=== PATIENT | female | born 1970 | race Hispanic/Latino ===

== ENCOUNTER 2016-08-03 21:51 | Emergency (ER) | payer MEDICARE, MEDICAID ==
[2016-08-03 21:51] VITALS: BMI 47.0
[2016-08-03 22:01] VITALS: BP 108/44; PULSE 76; RESP 18; TEMP 98; O2SAT 98
[2016-08-03] MEDS ORDERED: Acetaminophen-Codeine 300/30 mg Tab PO STA (22:17)
[2016-08-03] MEDS ORDERED: Acetaminophen-Codeine 300/30 mg Tab ONE (22:31)
--- NOTE | 2016-08-03 22:59 | ED PDOC ---
Lower Extremity Pain/Injury Time Seen by Provider: 08/03/16 22:08 Chief Complaint (Nursing): Lower Extremity Problem/Injury Chief Complaint (Provider): Right knee pain, years, worse today Onset/Duration Of Symptoms: Days Current Symptoms Are (Timing): Still Present Severity: Moderate Pain Scale Rating Of: 6 Additional Complaint(s): Pt states she has been taking motrin but it is not helping. No trauma. Past Medical History Reviewed: Historical Data, Nursing Documentation, Vital Signs Vital Signs: Last Vital Signs Temp 98 F 08/03/16 21:56 Pulse 76 08/03/16 21:56 Resp 18 08/03/16 21:56 BP 108/44 L 08/03/16 21:56 Pulse Ox 98 08/03/16 21:56 - Medical History PMH: Arthritis, Asthma, Bronchitis, Depression, Migraine Denies: Diabetes, Hepatitis, HIV, HTN, Seizures, Sexually Transmitted Disease - Surgical History Surgical History: No Surg Hx - Family History Family History: States: Unknown Family Hx, Hypertension - Living Arrangements Living Arrangements: With Family - Social History Current smoker - smoking cessation education provided: No Alcohol: None Drugs: Denies - Immunization History Hx Tetanus Toxoid Vaccination: No Hx Influenza Vaccination: No Hx Pneumococcal Vaccination: No - Home Medications Home Medications: Ambulatory Orders Medication Instructions Recorded Multimineral/Multivitamin 1 tab PO DAILY #30 tab 10/25/15 [Therapeutic-M Tab] Sertraline [Zoloft] 25 mg PO DAILY #30 tab 10/25/15 Nitrofurantoin Macrocrystals 100 mg PO BID #14 cap 10/27/15 [Macrobid] traMADol [Ultram] 50 mg PO TID PRN #12 tab 01/06/16 Ibuprofen [Motrin Tab] 800 mg PO Q8 #20 tab 01/26/16 Acetaminophen with Codeine 1 tab PO Q6H PRN #15 tab 08/03/16 [Tylenol with Codeine No. 3 300 mg-30 mg] - Allergies Allergies/Adverse Reactions: Allergies Allergy/AdvReac Type Severity Reaction Status Date / Time avocado Allergy URTICARIA Verified 01/06/16 08:09 fish derived Allergy URTICARIA Verified 01/06/16 08:09 Penicillins Allergy URTICARIA Verified 01/06/16 08:09 Review of Systems ROS Statement: Except As Marked, All Systems Reviewed And Found Negative Musculoskeletal: Positive for: Leg Pain Physical Exam - Reviewed Nursing Documentation Reviewed: Yes Vital Signs Reviewed: Yes - Physical Exam Appears: Positive for: Well, Non-toxic, No Acute Distress Head Exam: Positive for: ATRAUMATIC, NORMAL INSPECTION, NORMOCEPHALIC Skin: Positive for: Normal Color, Warm, DRY Eye Exam: Positive for: Normal appearance ENT: Positive for: Normal ENT Inspection Neck: Positive for: Normal, Painless ROM Respiratory: Negative for: Accessory Muscle Use, Respiratory Distress Back: Positive for: Normal Inspection Extremity: Positive for: Normal ROM, Tenderness. Negative for: Deformity, Swelling Neurologic/Psych: Positive for: Alert, Oriented - ECG O2 Sat by Pulse Oximetry: 98 Medical Decision Making Medical Decision Making: Arthritis on x-ray. No acute fracture or dislocation. Disposition - Clinical Impression Clinical Impression: Arthritis - Patient ED Disposition Is Patient to be Admitted: No Counseled Patient/Family Regarding: Diagnosis, Need For Followup, Rx Given - Disposition Referrals: [facility] [Outside] Disposition: Routine/Home Disposition Time: 23:01 Condition: GOOD Prescriptions: Acetaminophen with Codeine [Tylenol with Codeine No. 3 300 mg-30 mg] 1 tab PO Q6H PRN #15 tab PRN Reason: Pain, Severe (8-10) Instructions: Arthritis (ED)
--- NOTE | 2016-08-04 11:40 | RAD ---
PROCEDURE: Right Knee Radiographs. HISTORY: COMPARISON: None available. FINDINGS: Examination limited by habitus. BONES: No acute displaced fracture. Degenerative changes including osteophyte formation and tenting of the intercondylar notch. JOINTS: No dislocation. Lateral and patellofemoral joint space narrowing. JOINT EFFUSION: No significant joint effusion. OTHER FINDINGS: None. IMPRESSION: Degenerative changes with lateral and patellofemoral joint space narrowing, osteophyte formation, and tenting of the intercondylar notch.
== END 2016-08-03 23:19 | disposition home or self-care (01) ==
LOC: H.ER 21:51
DX: M17.11 Unilateral primary osteoarthritis, right knee (principal)

== ENCOUNTER 2016-11-27 23:02 | Observation (INO) | payer MEDICARE, MEDICAID ==
[2016-11-27 23:03] VITALS: BMI 46.5
[2016-11-27] MEDS ORDERED: Alum-Mag Hydrox-Simethicone Susp (30 mL) PO STA (23:40)
--- NOTE | 2016-11-27 23:43 | ED PDOC ---
HPI: Psych/Substance Abuse Time Seen by Provider: 11/27/16 23:30 Chief Complaint (Nursing): Alcohol Ingestion Chief Complaint (Provider): etoh, depressed History Per: Patient History/Exam Limitations: no limitations Onset/Duration Of Symptoms: Days (1) Current Symptoms Are (Timing): Still Present Modifying Factor(s): Alcohol Additional History Per: Patient Additional Complaint(s): 45 y/o female history of alcohol abuse presents intoxicated, requesting to see a psychiatrist. Patient states she relapsed after being sober for 1 years, and feels depressed. Patient states she had thoughts of hurting herself tonight, with plan to jump in the river. Patient also notes "burning" sensation in upper abdomen, which she states she gets after drinking. Denies fever, chest pain, shortness of breath, palpitations, vomiting, changes in bowel movements, homicidal ideations, hallucinations. Patient takes zoloft daily. Past Medical History Reviewed: Historical Data, Nursing Documentation, Vital Signs Vital Signs: Last Vital Signs Temp 98.1 F 11/27/16 23:24 Pulse 84 11/27/16 23:24 Resp 18 11/27/16 23:24 BP 124/78 11/27/16 23:24 Pulse Ox 99 11/27/16 23:24 - Medical History PMH: Arthritis, Asthma, Bronchitis, Depression, Migraine Denies: Diabetes, Hepatitis, HIV, HTN, Seizures, Sexually Transmitted Disease - Family History Family History: States: Unknown Family Hx, Hypertension - Living Arrangements Living Arrangements: Alone - Social History Current smoker - smoking cessation education provided: No Alcohol: > 2 Drinks/Day Drugs: Denies - Immunization History Hx Tetanus Toxoid Vaccination: No Hx Influenza Vaccination: No Hx Pneumococcal Vaccination: No - Home Medications Home Medications: Ambulatory Orders Medication Instructions Recorded Multimineral/Multivitamin 1 tab PO DAILY #30 tab 10/25/15 [Therapeutic-M Tab] Sertraline [Zoloft] 25 mg PO DAILY #30 tab 10/25/15 Nitrofurantoin Macrocrystals 100 mg PO BID #14 cap 10/27/15 [Macrobid] traMADol [Ultram] 50 mg PO TID PRN #12 tab 01/06/16 Ibuprofen [Motrin Tab] 800 mg PO Q8 #20 tab 01/26/16 Acetaminophen with Codeine 1 tab PO Q6H PRN #15 tab 08/03/16 [Tylenol with Codeine No. 3 300 mg-30 mg] - Allergies Allergies/Adverse Reactions: Allergies Allergy/AdvReac Type Severity Reaction Status Date / Time avocado Allergy URTICARIA Verified 01/06/16 08:09 fish derived Allergy URTICARIA Verified 01/06/16 08:09 Penicillins Allergy URTICARIA Verified 01/06/16 08:09 Review of Systems ROS Statement: Except As Marked, All Systems Reviewed And Found Negative Gastrointestinal: Positive for: Abdominal Pain Psych: Positive for: Depression, Suicidal ideation Physical Exam - Reviewed Nursing Documentation Reviewed: Yes Vital Signs Reviewed: Yes - Physical Exam Appears: Positive for: Well, Non-toxic, No Acute Distress Head Exam: Positive for: ATRAUMATIC, NORMAL INSPECTION, NORMOCEPHALIC Skin: Positive for: Normal Color Eye Exam: Positive for: Normal appearance ENT: Positive for: Normal ENT Inspection Cardiovascular/Chest: Positive for: Regular Rate, Rhythm Respiratory: Positive for: Normal Breath Sounds Gastrointestinal/Abdominal: Positive for: Bowel Sounds, Soft, Tenderness ( epigastric) Back: Positive for: Normal Inspection Extremity: Positive for: Normal ROM Neurologic/Psych: Positive for: Alert, Other (slurred speech, +AOB) - Laboratory Results Result Diagrams: 11/27/16 23:58 11/27/16 23:58 - ECG O2 Sat by Pulse Oximetry: 99 ED OBSERVATION Discharge: Yes Date of observation admission: 11/28/16 Time of observation admission: 00:00 - Observation admission statement Patient is being placed in observation because:: acute alcohol intoxication, depressed, suicidal ideations - Goals of Observation Goals of observation are:: observe for clinical sobriety, obtain crisis eval - Progress Note Progress Note: 11/28/16 00:00 Patient resting comfortably 1:30 Patient sleeping; no distress 3:00 patient awake, resting comfortably. Ambulating to bathroom with steady gait. 3:30 Patient evaluated by mill worker; does not meet criteria for admission at this time. Follow up outpatient. Return to ED for worsening/concerning symptoms. Disposition - Clinical Impression Clinical Impression: Alcohol use disorder, mild, abuse - Patient ED Disposition Is Patient to be Admitted: No Counseled Patient/Family Regarding: Studies Performed, Diagnosis, Need For Followup - Disposition Disposition: Routine/Home Disposition Time: 03:21 Condition: IMPROVED
[2016-11-27] MEDS ORDERED: Alum-Mag Hydrox-Simethicone Susp (30 mL) ONE (23:49)
[2016-11-28 00:01] LABS: BASO # 0.1 K/uL (0.0-0.2); BASO % 0.9 % (0.0-2.0); EOS # 0.1 K/uL (0.0-0.7); EOS % 0.9 % (0.0-4.0); HEMATOCRIT 34.6 % (34.0-47.0); LYMPH # 2.4 K/uL (1.0-4.3); LYMPH % 24.8 % (20.0-40.0); MEAN CELL VOLUME 83.4 fl (81.0-99.0); MEAN CORPUSCULAR HEMOGLOBIN 27.8 pg (27.0-31.0); MEAN CORPUSCULAR HGB CONC 33.4 g/dL (33.0-37.0); MEAN PLATELET VOLUME 7.5 fl (7.2-11.7); MONO # 0.4 K/uL (0.0-0.8); MONO % 3.9 % (0.0-10.0); NEUT # 6.8 K/uL (1.8-7.0); NEUT % 69.5 % (50.0-75.0); NRBC % 0.1 % (0.0-0.0); WHITE BLOOD COUNT 9.7 K/uL (4.8-10.8)
[2016-11-28 00:10] LABS: ALB/GLOB RATIO 1.5 (1.0-2.1); ALCOHOL SERUM 214 mg/dl (0-10); ALKALINE PHOSPHATASE 28 U/L (38-126); ALT/SGPT 28 U/L (9-52); AST/SGOT 32 U/L (14-36); BILIRUBIN,TOTAL 0.4 mg/dl (0.2-1.3); BLOOD UREA NITROGEN 12 mg/dl (7-17); CALCIUM 9.3 mg/dL (8.4-10.2); CARBON DIOXIDE 27 mmol/L (22-30); CHLORIDE 102 mmol/L (98-107); GFR AFRICAN-AMERICAN > 60; GLUCOSE,RANDOM 86 mg/dL (65-105); LIPASE 75 U/L (23-300); POTASSIUM 3.7 MMOL/L (3.6-5.0); SODIUM 146 mmol/l (132-148); TOTAL PROTEIN 7.5 G/DL (6.3-8.2)
[2016-11-28 03:33] VITALS: BP 109/52; PULSE 88; RESP 16; TEMP 97.5; O2SAT 95
== END 2016-11-28 03:22 | disposition home or self-care (01) ==
LOC: H.ER 23:02 → H.EROBSV 11-28 02:12
PROVIDERS: ADMIT Emergency Medicine; ATTEND Emergency Medicine
DX: F10.10 Alcohol abuse, uncomplicated (principal); J45.909 Unspecified asthma, uncomplicated; F32.9 Major depressive disorder, single episode, unspecified; G43.909 Migraine, unspecified, not intractable, without status migrainosus; J40 Bronchitis, not specified as acute or chronic; M19.90 Unspecified osteoarthritis, unspecified site; Z79.899 Other long term (current) drug therapy
CPT/HCPCS: 80053; 82948; 83690; 85025; 99285; G0378; G0480

== ENCOUNTER 2016-12-24 08:37 | Emergency (ER) | payer MEDICAID, MEDICARE ==
[2016-12-24 08:44] VITALS: BP 107/60; PULSE 86; RESP 16; TEMP 98.9; BMI 46.3
[2016-12-24 08:49] VITALS: O2SAT 98
--- NOTE | 2016-12-24 08:58 | ED PDOC ---
HPI: CCC, URI, Sore Throat Time Seen by Provider: 12/24/16 08:49 Chief Complaint (Nursing): Dizziness/Lightheaded History Per: Patient (Headache cough and congestion x 2 days. No fever. No vomiting) Onset/Duration Of Symptoms: Days (2) Current Symptoms Are (Timing): Still Present Location Of Pain: Diffuse Myalgias, Headache Associated Symptoms: Sore Throat, Cough, Myalgias Severity: Mild Pain Scale Rating Of: 3 Past Medical History Vital Signs: Last Vital Signs Temp 98.9 F 12/24/16 08:41 Pulse 86 12/24/16 08:41 Resp 16 12/24/16 08:41 BP 107/60 12/24/16 08:41 Pulse Ox 98 12/24/16 08:59 - Medical History PMH: Arthritis, Asthma, Bronchitis, Depression, Migraine Denies: Diabetes, Hepatitis, HIV, HTN, Seizures, Sexually Transmitted Disease - Family History Family History: States: Unknown Family Hx, Hypertension - Immunization History Hx Tetanus Toxoid Vaccination: No Hx Influenza Vaccination: No Hx Pneumococcal Vaccination: No - Home Medications Home Medications: Ambulatory Orders Medication Instructions Recorded Multimineral/Multivitamin 1 tab PO DAILY #30 tab 10/25/15 [Therapeutic-M Tab] Sertraline [Zoloft] 25 mg PO DAILY #30 tab 10/25/15 Nitrofurantoin Macrocrystals 100 mg PO BID #14 cap 10/27/15 [Macrobid] traMADol [Ultram] 50 mg PO TID PRN #12 tab 01/06/16 Ibuprofen [Motrin Tab] 800 mg PO Q8 #20 tab 01/26/16 Acetaminophen with Codeine 1 tab PO Q6H PRN #15 tab 08/03/16 [Tylenol with Codeine No. 3 300 mg-30 mg] Azithromycin [Zithromax] 250 mg PO DAILY #6 tab 12/24/16 Naproxen [Naprosyn] 500 mg PO Q12H #20 tab 12/24/16 - Allergies Allergies/Adverse Reactions: Allergies Allergy/AdvReac Type Severity Reaction Status Date / Time avocado Allergy URTICARIA Verified 12/24/16 08:46 fish derived Allergy URTICARIA Verified 12/24/16 08:46 Penicillins Allergy URTICARIA Verified 12/24/16 08:46 Review of Systems Constitutional: Positive for: Malaise ENT: Positive for: Throat Pain Respiratory: Positive for: Cough Gastrointestinal: Negative for: Nausea, Vomiting, Diarrhea Physical Exam - Physical Exam Appears: Positive for: Non-toxic Skin: Positive for: Normal Color, Warm, DRY ENT: Positive for: Pharyngeal Erythema. Negative for: Sinus Pain/Drainage, Tonsillar Exudate Neck: Positive for: Normal, Painless ROM Cardiovascular/Chest: Positive for: Regular Rate, Rhythm Respiratory: Positive for: CNT, Normal Breath Sounds Gastrointestinal/Abdominal: Positive for: Normal Exam, Bowel Sounds, Soft Extremity: Positive for: Normal ROM Neurologic/Psych: Positive for: Alert, Oriented - ECG O2 Sat by Pulse Oximetry: 98 Disposition - Clinical Impression Clinical Impression: Bronchitis - Patient ED Disposition Is Patient to be Admitted: No Counseled Patient/Family Regarding: Studies Performed, Diagnosis, Need For Followup, Rx Given - Disposition Referrals: [facility] [Outside] Disposition: Routine/Home Disposition Time: 11:18 Condition: FAIR Prescriptions: Azithromycin [Zithromax] 250 mg PO DAILY #6 tab Naproxen [Naprosyn] 500 mg PO Q12H #20 tab Instructions: Acute Bronchitis (ED) Forms: [employer] (Malian)
--- NOTE | 2016-12-24 10:07 | RAD ---
HISTORY: COMPARISON: 10/21/2015. TECHNIQUE: Chest PA and lateral FINDINGS: LINES AND TUBES: None. LUNG AND PLEURA: The lungs are well inflated and clear. HEART AND MEDIASTINUM: The heart is not enlarged. The hilar and mediastinal contours are within normal limits. SKELETAL STRUCTURES: The bony structures are within normal limits for the patient's age. VISUALIZED UPPER ABDOMEN: Normal. OTHER FINDINGS: None. IMPRESSION: No active pulmonary disease.
== END 2016-12-24 11:42 | disposition home or self-care (01) ==
LOC: H.ER 08:37
DX: J40 Bronchitis, not specified as acute or chronic (principal); F32.9 Major depressive disorder, single episode, unspecified; J45.909 Unspecified asthma, uncomplicated; Z88.0 Allergy status to penicillin

== ENCOUNTER 2017-01-29 15:53 | Emergency (ER) | payer MEDICARE, MEDICAID ==
[2017-01-29 15:53] VITALS: BMI 46.3
[2017-01-29 16:12] VITALS: BP 119/58; PULSE 76; RESP 18; TEMP 98; O2SAT 98
[2017-01-29] MEDS ORDERED: Naproxen 500 MG TAB PO ONE ×2 (16:18→16:25)
--- NOTE | 2017-01-29 18:16 | ED PDOC ---
Lower Extremity Pain/Injury Time Seen by Provider: 01/29/17 16:14 Chief Complaint (Nursing): Lower Extremity Problem/Injury Chief Complaint (Provider): Lower Extremity Problem/Injury History Per: Patient History/Exam Limitations: no limitations Onset/Duration Of Symptoms: Days (x 1) Current Symptoms Are (Timing): Still Present Additional Complaint(s): Maya is a 46 year old female who presents to the Emergency Department for bilateral knee pain and left wrist pain. Patient states last night she tripped and fell on both her knees and left wrist. Denies head injury, loss of consciousness, numbness/tingling, chest pain and abdominal pain. PMD: Ali Past Medical History Reviewed: Historical Data, Nursing Documentation, Vital Signs Vital Signs: Last Vital Signs Temp 98 F 01/29/17 16:09 Pulse 76 01/29/17 16:09 Resp 18 01/29/17 16:09 BP 119/58 L 01/29/17 16:09 Pulse Ox 98 01/29/17 16:09 - Medical History PMH: Arthritis, Asthma, Bronchitis, Depression, Migraine Denies: Diabetes, Hepatitis, HIV, HTN, Seizures, Sexually Transmitted Disease - Surgical History Surgical History: No Surg Hx - Family History Family History: States: Hypertension - Immunization History Hx Tetanus Toxoid Vaccination: No Hx Influenza Vaccination: No Hx Pneumococcal Vaccination: No - Home Medications Home Medications: Ambulatory Orders Medication Instructions Recorded Multimineral/Multivitamin 1 tab PO DAILY #30 tab 10/25/15 [Therapeutic-M Tab] Sertraline [Zoloft] 25 mg PO DAILY #30 tab 10/25/15 Nitrofurantoin Macrocrystals 100 mg PO BID #14 cap 10/27/15 [Macrobid] traMADol [Ultram] 50 mg PO TID PRN #12 tab 01/06/16 Ibuprofen [Motrin Tab] 800 mg PO Q8 #20 tab 01/26/16 Acetaminophen with Codeine 1 tab PO Q6H PRN #15 tab 08/03/16 [Tylenol with Codeine No. 3 300 mg-30 mg] Azithromycin [Zithromax] 250 mg PO DAILY #6 tab 12/24/16 Naproxen [Naprosyn] 500 mg PO Q12H #20 tab 12/24/16 Naproxen [Naprosyn] 500 mg PO BID PRN #30 tab 01/29/17 - Allergies Allergies/Adverse Reactions: Allergies Allergy/AdvReac Type Severity Reaction Status Date / Time avocado Allergy URTICARIA Verified 12/24/16 08:46 fish derived Allergy URTICARIA Verified 12/24/16 08:46 Penicillins Allergy URTICARIA Verified 12/24/16 08:46 Review of Systems ROS Statement: Except As Marked, All Systems Reviewed And Found Negative Cardiovascular: Negative for: Chest Pain Gastrointestinal: Negative for: Abdominal Pain Musculoskeletal: Positive for: Other (Bilateral Knee Pain, Left Wrist Pain) Neurological: Negative for: Numbness (and tingling), Other (Loss of consciousness) Physical Exam - Reviewed Nursing Documentation Reviewed: Yes Vital Signs Reviewed: Yes - Physical Exam Appears: Positive for: Non-toxic Head Exam: Positive for: ATRAUMATIC Eye Exam: Positive for: Normal appearance ENT: Positive for: Normal ENT Inspection Neck: Positive for: Normal Cardiovascular/Chest: Positive for: Regular Rate, Rhythm Respiratory: Positive for: Normal Breath Sounds. Negative for: Respiratory Distress Pulses-Radial (L): 2+ Neurologic/Psych: Positive for: Alert, Oriented - ECG O2 Sat by Pulse Oximetry: 98 (RA) Pulse Ox Interpretation: Normal Medical Decision Making Medical Decision Making: Time: 16:18 Plan: - Left Knee X-Ray - Right Knee X-Ray - Adacdel 0.5 ml IM - Naproxen 500 mg PO - Left Wrist X-Ray Time: 16:58 Left Knee-X-Ray FINDINGS: BONES: No acute fractures. No acute fracture. Proliferative hypertrophic changes emanating from the femoral condyle and tibial plateau regions. JOINTS: Degenerative changes primarily affecting medial compartment and to a lesser extent patellofemoral joint with relative sparing of the lateral compartment. JOINT EFFUSION: Probable small suprapatellar joint effusion. OTHER FINDINGS: None. IMPRESSION: No acute fracture. Additional benign and/or incidental findings described above. Time: 16:58 Right Knee X-Ray FINDINGS: BONES: No acute fracture. Proliferative hypertrophic changes emanating from the femoral condyle and tibial plateau regions. JOINTS: Degenerative changes primarily affecting medial compartment and to a lesser extent patellofemoral joint. Large, irregular fabella or evidence of osteochondromatosis. No interval change. JOINT EFFUSION: None. OTHER FINDINGS: None. IMPRESSION: No acute findings related to/accounting for the clinical presentation. Additional benign and/or incidental findings described above. No significant interval change compared to the prior examination(s). Time: 16:58 Wrist-X-Ray FINDINGS: BONES: Normal. No fracture. JOINTS: Normal. No dislocation. SOFT TISSUES: Normal. OTHER FINDINGS: None. IMPRESSION: Normal left wrist radiographs. Scribe Attestation: Documented by Kaiser Ortiz, acting as a scribe for Chucho Madsen PA-C Provider Scribe Attestation: All medical record entries made by the Scribe were at my direction and personally dictated by me. I have reviewed the chart and agree that the record accurately reflects my personal performance of the history, physical exam, medical decision making, and the department course for this patient. I have also personally directed, reviewed, and agree with the discharge instructions and disposition. Disposition - Clinical Impression Clinical Impression: Knee contusion, Wrist sprain - Patient ED Disposition Is Patient to be Admitted: No - Disposition Referrals: [facility] [Outside] Disposition: Routine/Home Disposition Time: 17:30 Condition: STABLE Prescriptions: Naproxen [Naprosyn] 500 mg PO BID PRN #30 tab PRN Reason: Pain Instructions: Knee Pain (ED), Wrist Sprain (ED) Forms: [employer] (Hungarian) Print Language: ERITREAN
--- NOTE | 2017-01-29 18:23 | RAD ---
PROCEDURE: Left Knee Radiographs. HISTORY: Pain. COMPARISON: Bilateral knee pain. History of prior trauma. FINDINGS: BONES: No acute fractures. No acute fracture. Proliferative hypertrophic changes emanating from the femoral condyle and tibial plateau regions. JOINTS: Degenerative changes primarily affecting medial compartment and to a lesser extent patellofemoral joint with relative sparing of the lateral compartment. JOINT EFFUSION: Probable small suprapatellar joint effusion. OTHER FINDINGS: None. IMPRESSION: No acute fracture. Additional benign and/or incidental findings described above.
--- NOTE | 2017-01-29 18:24 | RAD ---
PROCEDURE: Left Wrist Radiographs. HISTORY: trauma COMPARISON: None. FINDINGS: BONES: Normal. No fracture. JOINTS: Normal. No dislocation. SOFT TISSUES: Normal. OTHER FINDINGS: None. IMPRESSION: Normal left wrist radiographs.
--- NOTE | 2017-01-29 18:26 | RAD ---
PROCEDURE: Right Knee Radiographs. HISTORY: trauma COMPARISON: 08/03/2016 x-rays right knee FINDINGS: BONES: No acute fracture. Proliferative hypertrophic changes emanating from the femoral condyle and tibial plateau regions. JOINTS: Degenerative changes primarily affecting medial compartment and to a lesser extent patellofemoral joint. Large, irregular fabella or evidence of osteochondromatosis. No interval change. JOINT EFFUSION: None. OTHER FINDINGS: None. IMPRESSION: No acute findings related to/accounting for the clinical presentation. Additional benign and/or incidental findings described above. No significant interval change compared to the prior examination(s).
== END 2017-01-29 17:41 | disposition home or self-care (01) ==
LOC: H.ER 15:53
DX: S80.00XA Contusion of unspecified knee, initial encounter (principal); S63.502A Unspecified sprain of left wrist, initial encounter; W19.XXXA Unspecified fall, initial encounter; Y92.89 Other specified places as the place of occurrence of the external cause; F32.9 Major depressive disorder, single episode, unspecified; J45.909 Unspecified asthma, uncomplicated; Z88.0 Allergy status to penicillin

== ENCOUNTER 2017-03-20 12:17 | Emergency (ER) | payer MEDICARE, MEDICAID ==
[2017-03-20 12:46] VITALS: BMI 45.5
[2017-03-20 12:48] VITALS: BP 111/58; PULSE 73; RESP 17; TEMP 98.1; O2SAT 96
--- NOTE | 2017-03-20 13:47 | ED PDOC ---
HPI: General Adult Time Seen by Provider: 03/20/17 12:57 Chief Complaint (Nursing): Flu-like Symptoms Chief Complaint (Provider): Flu-like Symptoms History Per: Patient History/Exam Limitations: no limitations Onset/Duration Of Symptoms: Days (x2) Current Symptoms Are (Timing): Still Present Additional Complaint(s): 46 year old female with medical history of asthma and bronchitis, who presents to the emergency department with a complaint of flu-like symptoms including tactile fever, diarrhea, vomiting, generalized bodyaches, bilateral ear pain and sore throat ongoing for 5 days. Denied any chest pain, shortness of breath, abdominal pain, difficulty urinating, bloody urine, incontinence or recent travel. PMD: Merlin Rankin MD Past Medical History Reviewed: Historical Data, Nursing Documentation, Vital Signs Vital Signs: Last Vital Signs Temp 98.1 F 03/20/17 12:46 Pulse 73 03/20/17 12:46 Resp 17 03/20/17 12:46 BP 111/58 L 03/20/17 12:46 Pulse Ox 96 03/20/17 14:14 - Medical History PMH: Arthritis, Asthma, Bronchitis, Depression, Migraine Denies: Diabetes, Hepatitis, HIV, HTN, Seizures, Sexually Transmitted Disease - Surgical History Surgical History: Denies: No Surg Hx Other surgeries: right knee; right thumb - Family History Family History: States: Unknown Family Hx, Hypertension - Social History Current smoker - smoking cessation education provided: No Ex-Smoker (has not smoked in the last 12 months): Yes Alcohol: None Drugs: Denies - Immunization History Hx Tetanus Toxoid Vaccination: No Hx Influenza Vaccination: No Hx Pneumococcal Vaccination: No - Home Medications Home Medications: Ambulatory Orders Medication Instructions Recorded Multimineral/Multivitamin 1 tab PO DAILY #30 tab 10/25/15 [Therapeutic-M Tab] Sertraline [Zoloft] 25 mg PO DAILY #30 tab 10/25/15 Nitrofurantoin Macrocrystals 100 mg PO BID #14 cap 10/27/15 [Macrobid] traMADol [Ultram] 50 mg PO TID PRN #12 tab 01/06/16 Ibuprofen [Motrin Tab] 800 mg PO Q8 #20 tab 01/26/16 Acetaminophen with Codeine 1 tab PO Q6H PRN #15 tab 08/03/16 [Tylenol with Codeine No. 3 300 mg-30 mg] Azithromycin [Zithromax] 250 mg PO DAILY #6 tab 12/24/16 Naproxen [Naprosyn] 500 mg PO Q12H #20 tab 12/24/16 Naproxen [Naprosyn] 500 mg PO BID PRN #30 tab 01/29/17 Ibuprofen [Motrin Tab] 600 mg PO QID PRN #20 tab 03/20/17 Ondansetron ODT [Zofran ODT] 4 mg PO DAILY PRN #20 odt 03/20/17 - Allergies Allergies/Adverse Reactions: Allergies Allergy/AdvReac Type Severity Reaction Status Date / Time avocado Allergy URTICARIA Verified 03/20/17 12:44 fish derived Allergy URTICARIA Verified 03/20/17 12:44 Penicillins Allergy URTICARIA Verified 03/20/17 12:44 Review of Systems ROS Statement: Except As Marked, All Systems Reviewed And Found Negative Constitutional: Positive for: Fever (tactile), Other (generalized bodyaches) ENT: Positive for: Ear Pain (bilateral), Throat Pain Cardiovascular: Negative for: Chest Pain Respiratory: Negative for: Shortness of Breath Gastrointestinal: Positive for: Vomiting, Diarrhea. Negative for: Abdominal Pain Genitourinary Female: Negative for: Dysuria, Incontinence, Hematuria Physical Exam - Reviewed Nursing Documentation Reviewed: Yes Vital Signs Reviewed: Yes - Physical Exam Appears: Positive for: Well, Non-toxic, In Acute Distress (mild). Negative for : No Acute Distress Skin: Positive for: Normal Color, Warm, Dry ENT: Positive for: Normal ENT Inspection, Pharynx Is (within normal limits), TM Is/Are (wnl, no erythe,a). Negative for: Pharyngeal Erythema, Tonsillar Exudate Neck: Positive for: Normal, Supple (no signs of meningismus) Cardiovascular/Chest: Positive for: Regular Rate, Rhythm, Chest Non Tender Respiratory: Positive for: Normal Breath Sounds. Negative for: Decreased Breath Sounds, Crackles, Rales, Rhonchi, Wheezing, Respiratory Distress Gastrointestinal/Abdominal: Positive for: Normal Exam, Soft. Negative for: Tenderness, Organomegaly, Mass, Guarding, Rebound Back: Positive for: Normal Inspection. Negative for: L CVA Tenderness, R CVA Tenderness, Vertebral Tenderness Extremity: Positive for: Normal ROM (upper/lower). Negative for: Tenderness, Pedal Edema (bilateral), Calf Tenderness (bilateral), Swelling Neurologic/Psych: Positive for: Alert (x3), inspecting supervisor II-XII (intact), Oriented. Negative for: Motor/Sensory Deficits - ECG O2 Sat by Pulse Oximetry: 96 (RA) Pulse Ox Interpretation: Normal Medical Decision Making Medical Decision Making: Initial Impression: Flu-like symptoms Initial Plan: * Motrin 600mg PO * Zofran inj 4mg IM On reevaluation, patient reports improvement of nausea and body aches. Patient is tolerating by mouth fluids well in the emergency room without any nausea, vomiting or abdominal pain. Diagnosis of viral illness discussed the patient. Advised bedrest, to drink plenty of fluids, instructed to follow BRAT diet. Otherwise instructed to follow up with primary care physician in 1-2 days without fail. Advised to take medication as prescribed. Return to the emergency room at any time for any new or worsening symptoms. Patient states she fully agrees with and understands discharge instructions. States that she agrees with the plan and disposition. Verbalized and repeated discharge instructions and plan. I have given the patient opportunity to ask any additional questions. Scribe Attestation: Documented by Nilda Barcenas, acting as a scribe for Victorina Oneill PA-C. Provider Scribe Attestation: All medical record entries made by the Scribe were at my direction and personally dictated by me. I have reviewed the chart and agree that the record accurately reflects my personal performance of the history, physical exam, medical decision making, and the department course for this patient. I have also personally directed, reviewed, and agree with the discharge instructions and disposition. Disposition - Clinical Impression Clinical Impression: Viral illness - Patient ED Disposition Is Patient to be Admitted: No Counseled Patient/Family Regarding: Diagnosis, Need For Followup, Rx Given - Disposition Disposition: Routine/Home Disposition Time: 13:46 Condition: STABLE Additional Instructions: Thank you for letting us take care of you today. You were treated for viral illness. The emergency medical care you received today was directed at your acute symptoms. If you were prescribed any medication, please fill it and take as directed. It may take several days for your symptoms to resolve. Return to the Emergency Department if your symptoms worsen, do not improve, or if you have any other problems. Please contact your doctor in 2 days for re-evaluation and follow up. Bring any paperwork you were given at discharge with you along with any medications you are taking to your follow up visit. Our treatment cannot replace ongoing medical care by a primary care provider (PCP) outside of the emergency department. Thank you for allowing the [facility] team to be part of your care today. Prescriptions: Ibuprofen [Motrin Tab] 600 mg PO QID PRN #20 tab PRN Reason: Pain, Moderate (4-7) Ondansetron ODT [Zofran ODT] 4 mg PO DAILY PRN #20 odt PRN Reason: Nausea/Vomiting Instructions: Viral Syndrome (ED) Forms: [employer] (Lithuanian), 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
== END 2017-03-20 14:34 | disposition home or self-care (01) ==
LOC: H.ER 12:17
DX: B34.9 Viral infection, unspecified (principal); F32.9 Major depressive disorder, single episode, unspecified; J45.909 Unspecified asthma, uncomplicated; Z88.0 Allergy status to penicillin
CPT/HCPCS: 96372; 99282; J2405

== ENCOUNTER 2017-07-15 17:03 | Emergency (ER) | payer MEDICARE, MEDICAID ==
[2017-07-15 17:03] VITALS: BMI 45.5
--- NOTE | 2017-07-15 17:50 | ED PDOC ---
HPI: General Adult Time Seen by Provider: 07/15/17 17:25 Chief Complaint (Nursing): Abdominal Pain Chief Complaint (Provider): Abdominal Pain History Per: Patient History/Exam Limitations: no limitations Onset/Duration Of Symptoms: Hrs Current Symptoms Are (Timing): Still Present Additional Complaint(s): 46 year old female with a past medical history of migraines associated with dizziness and asthma who presents to the emergency department with a complaint of an on and off sharp right-sided abdominal pain (non-radiating) that started about 1 hour ago when she woke up. Associated with a throbbing headache and dizziness that started at 1600. Denies vomiting, urinary symptoms, back pain, fever, depression, suicidal or homicidal ideation. Past Medical History Reviewed: Historical Data, Nursing Documentation, Vital Signs Vital Signs: Last Vital Signs Temp 98.2 F 07/15/17 22:13 Pulse 61 07/15/17 22:13 Resp 18 07/15/17 22:13 BP 105/66 07/15/17 22:13 Pulse Ox 97 07/16/17 05:29 - Medical History PMH: Arthritis, Asthma, Bipolar Disorder, Bronchitis, Depression, Migraine, Schizophrenia Denies: Diabetes, Hepatitis, HIV, HTN, Seizures, Sexually Transmitted Disease - Surgical History Other surgeries: Right finger and knee - Family History Family History: States: Unknown Family Hx, Hypertension - Social History Current smoker - smoking cessation education provided: No Alcohol: None Drugs: Denies - Immunization History Hx Tetanus Toxoid Vaccination: No Hx Influenza Vaccination: No Hx Pneumococcal Vaccination: No - Home Medications Home Medications: Ambulatory Orders Medication Instructions Recorded Multimineral/Multivitamin 1 tab PO DAILY #30 tab 10/25/15 [Therapeutic-M Tab] Sertraline [Zoloft] 25 mg PO DAILY #30 tab 10/25/15 Nitrofurantoin Macrocrystals 100 mg PO BID #14 cap 10/27/15 [Macrobid] traMADol [Ultram] 50 mg PO TID PRN #12 tab 01/06/16 Ibuprofen [Motrin Tab] 800 mg PO Q8 #20 tab 01/26/16 Acetaminophen with Codeine 1 tab PO Q6H PRN #15 tab 08/03/16 [Tylenol with Codeine No. 3 300 mg-30 mg] Azithromycin [Zithromax] 250 mg PO DAILY #6 tab 12/24/16 Naproxen [Naprosyn] 500 mg PO Q12H #20 tab 12/24/16 Naproxen [Naprosyn] 500 mg PO BID PRN #30 tab 01/29/17 Ibuprofen [Motrin Tab] 600 mg PO QID PRN #20 tab 03/20/17 Ondansetron ODT [Zofran ODT] 4 mg PO DAILY PRN #20 odt 03/20/17 Ibuprofen [Motrin] 600 mg PO Q6H #14 tab 04/17/17 Nitrofurantoin Macrocrystals 100 mg PO BID #14 cap 07/15/17 [Macrobid] - Allergies Allergies/Adverse Reactions: Allergies Allergy/AdvReac Type Severity Reaction Status Date / Time avocado Allergy URTICARIA Verified 03/20/17 12:44 Penicillins Allergy URTICARIA Verified 03/20/17 12:44 seafood Allergy URTICARIA Uncoded 07/15/17 17:10 Review of Systems ROS Statement: Except As Marked, All Systems Reviewed And Found Negative (As per HPI, otherwise negative) Constitutional: Negative for: Fever Gastrointestinal: Positive for: Abdominal Pain. Negative for: Vomiting, Diarrhea Genitourinary Female: Negative for: Dysuria, Frequency, Incontinence, Hematuria Musculoskeletal: Negative for: Back Pain Psych: Negative for: Depression, Suicidal ideation (homicidal) Physical Exam - Reviewed Nursing Documentation Reviewed: Yes Vital Signs Reviewed: Yes - Physical Exam Appears: Positive for: Well, No Acute Distress Head Exam: Positive for: NORMAL INSPECTION Skin: Positive for: Normal Color, Warm, Dry Eye Exam: Positive for: Normal appearance, EOMI, PERRL ENT: Positive for: Normal ENT Inspection. Negative for: Pharyngeal Erythema Cardiovascular/Chest: Positive for: Regular Rate, Rhythm. Negative for: Murmur Respiratory: Positive for: Normal Breath Sounds. Negative for: Accessory Muscle Use, Respiratory Distress Gastrointestinal/Abdominal: Positive for: Soft, Tenderness (Right sided flank and lower region tenderness). Negative for: Normal Exam Back: Positive for: Normal Inspection. Negative for: L CVA Tenderness, R CVA Tenderness Extremity: Positive for: Normal ROM. Negative for: Pedal Edema Neurologic/Psych: Positive for: Alert, Oriented (x3) - Laboratory Results Result Diagrams: 07/15/17 18:32 07/15/17 18:32 - ECG O2 Sat by Pulse Oximetry: 97 (RA) Pulse Ox Interpretation: Normal Medical Decision Making Medical Decision Making: Time: 1744 Initial impression: Headache, dizziness, and right flank pain. Differential includes recurrent migraines, consider urinary tract infection, and renal colic Initial plan: BMP Urine DIP & Preg CBC w/ diff Toradol 30 mg IVP Antivert 25 mg PO Reglan 10 mg IVP Abd & Pelvis CT Reevaluation Time: 1899 --Patient transferred to Dr. Addison. --Pending abd & pelvis CT, reevaluation, and disposition. Scribe Attestation: Documented by Sanjana Luevano, acting as a scribe for Emory Diaz MD Provider Scribe Attestation: All medical record entries made by the Scribe were at my direction and personally dictated by me. I have reviewed the chart and agree that the record accurately reflects my personal performance of the history, physical exam, medical decision making, and the department course for this patient. I have also personally directed, reviewed, and agree with the discharge instructions and disposition. Disposition - Clinical Impression Clinical Impression: Urinary tract infection - Patient ED Disposition Is Patient to be Admitted: Transfer of Care Counseled Patient/Family Regarding: Studies Performed, Diagnosis - Disposition Disposition: Transfer of Care Disposition Time: 19:00 Condition: STABLE Prescriptions: Nitrofurantoin Macrocrystals [Macrobid] 100 mg PO BID #14 cap Instructions: Urinary Tract Infections in Adults Patient Signed Over To: Austin Addison
[2017-07-15 18:38] LABS: BASO % 0.5 % (0.0-2.0); EOS % 0.4 % (0.0-4.0); HEMOGLOBIN 11.2 g/dL (12.0-16.0); LYMPH % 12.8 % (20.0-40.0); MEAN CELL VOLUME 83.2 fl (81.0-99.0); MEAN CORPUSCULAR HEMOGLOBIN 28.1 pg (27.0-31.0); MEAN CORPUSCULAR HGB CONC 33.8 g/dL (33.0-37.0); MEAN PLATELET VOLUME 7.5 fl (7.2-11.7); MONO # 0.4 K/uL (0.0-0.8); MONO % 5.3 % (0.0-10.0); NEUT # 6.5 K/uL (1.8-7.0); RBC 3.98 Mil/uL (3.80-5.20); RED CELL DISTRIBUTION WIDTH 16.3 % (11.5-14.5)
[2017-07-15 18:48] LABS: BLOOD UREA NITROGEN 12 mg/dl (7-17); CALCIUM 9.5 mg/dL (8.4-10.2); GFR AFRICAN-AMERICAN > 60; GFR NON-AFRICAN AMERICAN > 60
--- NOTE | 2017-07-15 19:15 | ED PDOC ---
- Laboratory Results Result Diagrams: 07/15/17 18:32 07/15/17 18:32 - ECG O2 Sat by Pulse Oximetry: 97 (RA) Pulse Ox Interpretation: Normal Medical Decision Making Medical Decision Making: Time: 1899 --Patient endorsed to provider by Dr. Diaz --Pending Abd & Pelvis CT, reevaluation, and disposition. Time: 2151 --Abd & Pelvis CT FINDINGS: Lung bases: Minimal atelectasis. ABDOMEN: Liver: No acute abnormality as visualized. Gallbladder and bile ducts: No acute abnormality as visualized. Pancreas: No acute abnormality as visualized. Spleen: Splenomegaly. Adrenals: No acute abnormality as visualized. Kidneys and ureters: No obstructing stones. No hydronephrosis. Stomach and bowel: Limited evaluation without enteric contrast. Minimal hiatal hernia. No obstruction. PELVIS: Appendix: No findings to suggest acute appendicitis. Bladder: Collapsed, limited evaluation. Reproductive: Limited evaluation without contrast. No acute abnormality as visualized. ABDOMEN and PELVIS: Intraperitoneal space: No free air. No significant fluid collection. Bones/joints: Mild degenerative changes. Soft tissues: Minimal fat containing umbilical hernia. Vasculature: No abdominal aortic aneurysm. Lymph nodes: No acute abnormality as visualized. IMPRESSION: No definitive acute CT finding to correspond to reported history. Minimal hiatal hernia. Splenomegaly. Please note evaluation for underlying visceral lesions/abnormalities limited without intravenous contrast. Details as above. Correlate clinically. Followup as warranted. Time: 2201 Upon reevaluation, patient reports improvement in symptoms. Patient is medically clear and stable for discharge with Rx for Macrobid 100 mg. Clinical Impression: Urinary tract infection Scribe Attestation: Documented by Sanjana Luevano, acting as a scribe for Austin Addison MD Provider Scribe Attestation: All medical record entries made by the Scribe were at my direction and personally dictated by me. I have reviewed the chart and agree that the record accurately reflects my personal performance of the history, physical exam, medical decision making, and the department course for this patient. I have also personally directed, reviewed, and agree with the discharge instructions and disposition. Disposition - Clinical Impression Clinical Impression: Urinary tract infection - POA Present On Arrival: None - Disposition Disposition: Routine/Home Disposition Time: 22:02 Condition: STABLE Prescriptions: Nitrofurantoin Macrocrystals [Macrobid] 100 mg PO BID #14 cap Instructions: Urinary Tract Infections in Adults Forms: [facility] (Mongolian)
[2017-07-15 19:52] VITALS: RESP 18; TEMP 98.2
--- NOTE | 2017-07-15 21:52 | CT ---
EXAM: CT Abdomen and Pelvis Without Intravenous Contrast CLINICAL HISTORY: 46 years old, female; Pain; Abdominal pain; Generalized; Additional info: Right flank pain TECHNIQUE: Axial computed tomography images of the abdomen and pelvis without intravenous contrast. All CT scans at this facility use one or more dose reduction techniques, viz.: automated exposure control; ma/kV adjustment per patient size (including targeted exams where dose is matched to indication; i.e. head); or iterative reconstruction technique. Coronal and sagittal reformatted images were created and reviewed. COMPARISON: CR - HIP W/WO PELVIS 2-3 VIEWS RT 2015-06-02 20:55 FINDINGS: Lung bases: Minimal atelectasis. ABDOMEN: Liver: No acute abnormality as visualized. Gallbladder and bile ducts: No acute abnormality as visualized. Pancreas: No acute abnormality as visualized. Spleen: Splenomegaly. Adrenals: No acute abnormality as visualized. Kidneys and ureters: No obstructing stones. No hydronephrosis. Stomach and bowel: Limited evaluation without enteric contrast. Minimal hiatal hernia. No obstruction. PELVIS: Appendix: No findings to suggest acute appendicitis. Bladder: Collapsed, limited evaluation. Reproductive: Limited evaluation without contrast. No acute abnormality as visualized. ABDOMEN and PELVIS: Intraperitoneal space: No free air. No significant fluid collection. Bones/joints: Mild degenerative changes. Soft tissues: Minimal fat containing umbilical hernia. Vasculature: No abdominal aortic aneurysm. Lymph nodes: No acute abnormality as visualized. IMPRESSION: No definitive acute CT finding to correspond to reported history. Minimal hiatal hernia. Splenomegaly. Please note evaluation for underlying visceral lesions/abnormalities limited without intravenous contrast. Details as above. Correlate clinically. Followup as warranted.
[2017-07-15 21:53] VITALS: O2SAT 97
[2017-07-15 22:31] VITALS: BP 105/66; PULSE 61
== END 2017-07-15 22:16 | disposition home or self-care (01) ==
LOC: H.ER 17:03
DX: N39.0 Urinary tract infection, site not specified (principal); Z86.59 Personal history of other mental and behavioral disorders; J45.909 Unspecified asthma, uncomplicated; Z88.0 Allergy status to penicillin
CPT/HCPCS: 74176; 80048; 81025; 85025; 96374; 96375; 99285; J1885; J2765

== ENCOUNTER 2017-08-07 16:00 | Emergency (ER) | payer MEDICARE, MEDICAID ==
[2017-08-07 16:01] VITALS: BMI 45.5
[2017-08-07 16:34] VITALS: BP 115/70; PULSE 75; RESP 16; TEMP 98.8; O2SAT 99
[2017-08-07] MEDS ORDERED: Promethazine/Cod 6.25mg-10mg/5ml Syr UD PO STA (17:19)
[2017-08-07] MEDS ORDERED: Promethazine/Cod 6.25mg-10mg/5ml Syr UD ONE (17:41)
--- NOTE | 2017-08-07 18:25 | ED PDOC ---
HPI: CCC, URI, Sore Throat Time Seen by Provider: 08/07/17 17:01 Chief Complaint (Nursing): Cough, Cold, Congestion Chief Complaint (Provider): cough, congestion, sore throat History Per: Patient History/Exam Limitations: no limitations Onset/Duration Of Symptoms: Days (2x) Current Symptoms Are (Timing): Better Location Of Pain: Ear(s), Throat Associated Symptoms: Cough (dry), Nasal Congestion. denies: Fever Additional Complaint(s): 46 year old female presents to the ED complaining of cough, congestion, sore throat and ear pain onset for 2 days. Also reports of dry cough. She denies difficulty breathing, chest pain, or fever. PMD: Helio Stover Past Medical History Reviewed: Historical Data, Nursing Documentation, Vital Signs Vital Signs: Last Vital Signs Temp 98.8 F 08/07/17 16:32 Pulse 75 08/07/17 16:32 Resp 16 08/07/17 16:32 BP 115/70 08/07/17 16:32 Pulse Ox 99 08/07/17 18:41 - Medical History PMH: Arthritis, Asthma, Bipolar Disorder, Bronchitis, Depression, Migraine, Schizophrenia Denies: Diabetes, Hepatitis, HIV, HTN, Seizures, Sexually Transmitted Disease - Family History Family History: States: Unknown Family Hx, Hypertension - Social History Current smoker - smoking cessation education provided: No Alcohol: None Drugs: Denies - Immunization History Hx Tetanus Toxoid Vaccination: No Hx Influenza Vaccination: No Hx Pneumococcal Vaccination: No - Home Medications Home Medications: Ambulatory Orders Medication Instructions Recorded Multimineral/Multivitamin 1 tab PO DAILY #30 tab 10/25/15 [Therapeutic-M Tab] Sertraline [Zoloft] 25 mg PO DAILY #30 tab 10/25/15 Nitrofurantoin Macrocrystals 100 mg PO BID #14 cap 10/27/15 [Macrobid] traMADol [Ultram] 50 mg PO TID PRN #12 tab 01/06/16 Ibuprofen [Motrin Tab] 800 mg PO Q8 #20 tab 01/26/16 Acetaminophen with Codeine 1 tab PO Q6H PRN #15 tab 08/03/16 [Tylenol with Codeine No. 3 300 mg-30 mg] Azithromycin [Zithromax] 250 mg PO DAILY #6 tab 12/24/16 Naproxen [Naprosyn] 500 mg PO Q12H #20 tab 12/24/16 Naproxen [Naprosyn] 500 mg PO BID PRN #30 tab 01/29/17 Ibuprofen [Motrin Tab] 600 mg PO QID PRN #20 tab 03/20/17 Ondansetron ODT [Zofran ODT] 4 mg PO DAILY PRN #20 odt 03/20/17 Ibuprofen [Motrin] 600 mg PO Q6H #14 tab 04/17/17 Nitrofurantoin Macrocrystals 100 mg PO BID #14 cap 07/15/17 [Macrobid] Azithromycin [Z-Ángel] 250 mg PO ASDIR #6 tab 08/07/17 Promethazine/Codeine 5 ml PO TID PRN #100 ml 08/07/17 [Phenergan/Codeine Oral Syrup] - Allergies Allergies/Adverse Reactions: Allergies Allergy/AdvReac Type Severity Reaction Status Date / Time avocado Allergy URTICARIA Verified 03/20/17 12:44 Penicillins Allergy URTICARIA Verified 03/20/17 12:44 seafood Allergy URTICARIA Uncoded 07/15/17 17:10 Review of Systems ROS Statement: Except As Marked, All Systems Reviewed And Found Negative Constitutional: Negative for: Fever ENT: Positive for: Ear Pain, Nose Congestion, Throat Pain Cardiovascular: Negative for: Chest Pain Respiratory: Positive for: Cough (dry). Negative for: Other (difficulty breathing) Physical Exam - Reviewed Nursing Documentation Reviewed: Yes Vital Signs Reviewed: Yes - Physical Exam Appears: Positive for: Well, Non-toxic, No Acute Distress Head Exam: Positive for: ATRAUMATIC, NORMAL INSPECTION, NORMOCEPHALIC Skin: Positive for: Normal Color, Warm, Dry ENT: Positive for: Normal ENT Inspection Cardiovascular/Chest: Positive for: Regular Rate, Rhythm. Negative for: Murmur Respiratory: Positive for: Normal Breath Sounds. Negative for: Decreased Breath Sounds, Accessory Muscle Use, Respiratory Distress - ECG O2 Sat by Pulse Oximetry: 99 (RA) Pulse Ox Interpretation: Normal Medical Decision Making Medical Decision Making: Time: 1717 Initial Impression: URI, ear pain Differential Diagnosis includes but is not limited to: viral URI, otitis media Initial Plan: --Motrin Tab 600mg --Promethazine/Codeine 5ml PO --Reevaluation Scribe Attestation: Documented by Vladimir Moss, acting as a scribe for Emory Diaz MD Provider Scribe Attestation: All medical record entries made by the Scribe were at my direction and personally dictated by me. I have reviewed the chart and agree that the record accurately reflects my personal performance of the history, physical exam, medical decision making, and the department course for this patient. I have also personally directed, reviewed, and agree with the discharge instructions and disposition. Disposition - Clinical Impression Clinical Impression: URI (upper respiratory infection), Ear pain, left - Patient ED Disposition Is Patient to be Admitted: No Doctor Will See Patient In The: Office Counseled Patient/Family Regarding: Studies Performed, Diagnosis, Need For Followup - Disposition Referrals: [facility] [Outside] Disposition: Routine/Home Disposition Time: 18:30 Condition: GOOD Additional Instructions: Follow up with your PCP in 2-3 days. Take advil for pain or fever. Prescriptions: Azithromycin [Z-Ángel] 250 mg PO ASDIR #6 tab Promethazine/Codeine [Phenergan/Codeine Oral Syrup] 5 ml PO TID PRN #100 ml PRN Reason: Cough Instructions: Ear Infections (Otitis Media), Viral Upper Respiratory Infection , Adult (DC)
== END 2017-08-07 18:59 | disposition home or self-care (01) ==
LOC: H.ER 16:00
DX: J06.9 Acute upper respiratory infection, unspecified (principal); H92.02 Otalgia, left ear; F20.9 Schizophrenia, unspecified; F31.9 Bipolar disorder, unspecified; J45.909 Unspecified asthma, uncomplicated; Z88.0 Allergy status to penicillin

== ENCOUNTER 2017-09-26 16:53 | Observation (INO) | payer MEDICARE, MEDICAID ==
[2017-09-26 16:53] VITALS: BMI 45.5
[2017-09-26] MEDS ORDERED: Iohexol 240 (50 ml) PO ONE (17:24)
[2017-09-26] MEDS ORDERED: Sodium Chloride 0.9% 1,000 ML IV STA (17:25)
[2017-09-26] MEDS ORDERED: Iohexol 240 (50 ml) ONE (17:30)
--- NOTE | 2017-09-26 17:52 | ED PDOC ---
HPI: Abdomen Time Seen by Provider: 09/26/17 17:04 Chief Complaint (Nursing): GI Problem Chief Complaint (Provider): abdominal pain, vomiting History Per: Patient History/Exam Limitations: no limitations Onset/Duration Of Symptoms: Hrs (14:00 today) Context: Food Associated Symptoms: Chills, Vomiting, Back Pain (lower ). denies: Fever, Diarrhea Additional Complaint(s): Maya Kidd is a 46 year old female, with a past medical history of gastritis and arthritis, who presents to the emergency department complaining of abdominal pain associated with chills and multiple episodes of vomiting onset since 14:00 today. Patient reports eating [place] food at 12:00 today. She has had normal bowel movements since. She is also complaining of a lower back pain but denies any fever, diarrhea or other medical complaints. PMD: Dr. Stover Past Medical History Reviewed: Historical Data, Nursing Documentation, Vital Signs Vital Signs: Last Vital Signs Temp 97.5 F L 09/27/17 09:00 Pulse 51 L 09/27/17 09:00 Resp 20 09/27/17 09:00 BP 119/74 09/27/17 09:00 Pulse Ox 97 09/27/17 09:00 - Medical History PMH: Arthritis, Asthma, Bipolar Disorder, Bronchitis, Depression, Gastritis, Migraine, Schizophrenia Denies: Diabetes, Hepatitis, HIV, HTN, Seizures, Sexually Transmitted Disease - Surgical History Surgical History: No Surg Hx - Family History Family History: States: Unknown Family Hx, Hypertension - Immunization History Hx Tetanus Toxoid Vaccination: No Hx Influenza Vaccination: No Hx Pneumococcal Vaccination: No - Home Medications Home Medications: Ambulatory Orders Medication Instructions Recorded Sertraline [Zoloft] 100 mg PO DAILY 09/26/17 - Allergies Allergies/Adverse Reactions: Allergies Allergy/AdvReac Type Severity Reaction Status Date / Time avocado Allergy URTICARIA Verified 09/26/17 16:54 Penicillins Allergy URTICARIA Verified 09/26/17 16:54 seafood Allergy URTICARIA Uncoded 07/15/17 17:10 Review of Systems ROS Statement: Except As Marked, All Systems Reviewed And Found Negative Constitutional: Positive for: Chills. Negative for: Fever Gastrointestinal: Positive for: Vomiting, Abdominal Pain. Negative for: Diarrhea Musculoskeletal: Positive for: Back Pain (lower) Physical Exam - Reviewed Nursing Documentation Reviewed: Yes Vital Signs Reviewed: Yes - Physical Exam Appears: Positive for: No Acute Distress Head Exam: Positive for: ATRAUMATIC, NORMAL INSPECTION, NORMOCEPHALIC Skin: Positive for: Normal Color, Warm, Dry Eye Exam: Positive for: Normal appearance, EOMI, PERRL Neck: Positive for: Painless ROM Cardiovascular/Chest: Positive for: Regular Rate, Rhythm. Negative for: Murmur Respiratory: Positive for: Normal Breath Sounds. Negative for: Respiratory Distress Gastrointestinal/Abdominal: Positive for: Tenderness (RLQ) Back: Positive for: Normal Inspection Extremity: Positive for: Normal ROM (upper and lower extremities). Negative for : Deformity, Swelling Neurologic/Psych: Positive for: Alert, Oriented. Negative for: Motor/Sensory Deficits - Laboratory Results Result Diagrams: 09/27/17 06:37 09/27/17 06:37 - ECG O2 Sat by Pulse Oximetry: 97 (RA) Pulse Ox Interpretation: Normal Medical Decision Making Medical Decision Making: Time: 17:04 Initial Impression: food poisoning. r/o appendicitis vs gastroenteritis Initial Plan: --Abdomen Pelvis PO & IV Contrast [CT] --CMP --CBC w/ differential --Sodium Chloride 1,000 ml IV 999 mls/hr --Omnipaque 240 50 ml PO --Pepcid 20 mg IVP --Zofran Inj 4 mg IV --Reevaluation 20:26 Abdomen/Pelvis CT FINDINGS: Lung bases: No consolidation. ABDOMEN: Liver: Unremarkable. Gallbladder and bile ducts: Mild central intrahepatic biliary dilation. Common bile duct is dilated measuring up to 12 mm. No calcified stones. Pancreas: Unremarkable. No ductal dilation. Spleen: Borderline splenomegaly. Adrenals: Unremarkable. No mass. Kidneys and ureters: Unremarkable. No hydronephrosis. Stomach and bowel: Oral contrast reaches the proximal small bowel. Evaluation of remainder of the bowel is limited due to lack of oral contrast opacification. PELVIS: Appendix: No findings to suggest acute appendicitis. Bladder: Partially contracted. Reproductive: Unremarkable as visualized. ABDOMEN and PELVIS: Intraperitoneal space: Unremarkable. No free air. No drainable fluid collection. Bones/joints: No acute fracture. No dislocation. Soft tissues: Tiny fat containing umbilical hernia. Vasculature: Unremarkable. No abdominal aortic aneurysm. Lymph nodes: Unremarkable. No enlarged lymph nodes. IMPRESSION: Mild central intrahepatic biliary dilation. Common bile duct is dilated measuring up to 12 mm. Clinical correlation and if are noted further evaluation with MRCP can be considered. 20:33 -Patient has elevated LFTs. Will admit to hospitalist. ordered GI consult. 20:48 -Spoke with Dr. Davis who accepted patient. (pts primary doctor is a [facility] doc) ----- Scribe Attestation: Documented by Tyrone Chandra, acting as a scribe for Nory Pastor MD. Provider Scribe Attestation: All medical record entries made by the Scribe were at my direction and personally dictated by me. I have reviewed the chart and agree that the record accurately reflects my personal performance of the history, physical exam, medical decision making, and the department course for this patient. I have also personally directed, reviewed, and agree with the discharge instructions and disposition. Disposition - Clinical Impression Clinical Impression: Vomiting, Common bile duct dilatation - Patient ED Disposition Is Patient to be Admitted: No Counseled Patient/Family Regarding: Studies Performed, Diagnosis - Disposition Disposition Time: 20:35 Condition: STABLE
[2017-09-26 18:06] LABS: BASO % 0.4 % (0.0-2.0); EOS % 0.2 % (0.0-4.0); HEMOGLOBIN 11.5 g/dL (12.0-16.0); LYMPH # 0.7 K/uL (1.0-4.3); LYMPH % 8.6 % (20.0-40.0); MEAN CORPUSCULAR HEMOGLOBIN 28.1 pg (27.0-31.0); MEAN PLATELET VOLUME 7.5 fl (7.2-11.7); MONO # 0.4 K/uL (0.0-0.8); MONO % 5.3 % (0.0-10.0); NEUT % 85.5 % (50.0-75.0); PLATELET COUNT 275 K/uL (130-400); RED CELL DISTRIBUTION WIDTH 16.1 % (11.5-14.5); WHITE BLOOD COUNT 8.2 K/uL (4.8-10.8)
[2017-09-26 18:19] LABS: ALB/GLOB RATIO 1.3 (1.0-2.1); ALBUMIN 4.6 g/dL (3.5-5.0); ALT/SGPT 69 U/L (9-52); AST/SGOT 121 U/L (14-36); BLOOD UREA NITROGEN 11 mg/dl (7-17); CALCIUM 9.3 mg/dL (8.4-10.2); GFR AFRICAN-AMERICAN > 60; GFR NON-AFRICAN AMERICAN > 60
[2017-09-26] MEDS ORDERED: Sodium Chloride 0.9% 50 ML IV ONE (19:06)
[2017-09-26] MEDS ORDERED: Iohexol 300 100 ML IJ ONE (19:06)
[2017-09-26 20:13] LABS: ANISOCYTOSIS SLIGHT; BANDS 3 % (0-2); HYPOCHROMIC SLIGHT; LYMPHOCYTE 11 % (20-50); MICROCYTOSIS SLIGHT; MONOCYTE 6 % (0-10); NEUTROPHIL 80 % (42-75); PLATELET ESTIMATE NORMAL (NORMAL); POIKILOCYTOSIS SLIGHT; TOTAL CELLS COUNTED 100
--- NOTE | 2017-09-26 21:19 | CP.PCM.HP ---
History of Present Illness - History of Present Illness History of Present Illness: PMD: Dr. Stover Chief complaint: Abdominal pain and vomiting The Patient was seen and examined in the ED HPI: This is a 46 years old female with hx of drinking > 2 alcoholic drinks daily, arthritis, Bipolar and Gastritis who comes to the ED with a 2hours hx of generalized abdominal pain radiating to the lower back, which later localized at the epigastric region. This was associated with chills and multiple episodes of vomiting. She had eaten [place] food Two hours earlier. She had no diarrhea, Chest pain, fever nor urinary symptoms. PMH: Arthritis, Asthma, Bipolar Disorder, Bronchitis, Depression, Gastritis, Migraine, Schizophrenia; osteoarthritis of right knee; Glaucoma of the left eye ; Claustrophobia PSH: [id number] of the right knee; Right small finger with open fracture SH: Live with mother; Drinks > than 2 alcoholic drinks daily; Never smoked; No illegal drug use FH: significant for HTN Allergies: avocado, Penicillin; seafoods Medication: Reviewed Present on Admission - Present on Admission Any Indicators Present on Admission: No History of DVT/PE: No History of Uncontrolled Diabetes: No Urinary Catheter: No Decubitus Ulcer Present: No Review of Systems - Constitutional Constitutional: Chills. absent: Anorexia, Fever, Headache, Weakness - EENT Eyes: Requires Corrective Lenses. absent: Blurred Vision, Diplopia, Floaters Ears: absent: Decreased Hearing, Ear Discharge, Tinnitus Nose/Mouth/Throat: absent: Epistaxis, Nasal Congestion, Nasal Discharge, Sinus Pain, Sinus Pressure - Cardiovascular Cardiovascular: absent: Chest Pain, Dyspnea, Edema - Respiratory Respiratory: absent: Cough, Dyspnea, Wheezing, Stridor - Gastrointestinal Gastrointestinal: Abdominal Pain, Vomiting. absent: Constipation, Diarrhea, Melena - Genitourinary Genitourinary: absent: Dysuria, Flank Pain, Urinary Frequency - Musculoskeletal Musculoskeletal: Arthralgias, Back Pain - Integumentary Integumentary: absent: Pruritus, Rash, Skin Ulcer, Sores, Striae, Swelling - Neurological Neurological: absent: Confusion, Dizziness, Focal Weakness, Headaches, Weakness - Psychiatric Psychiatric: absent: Anxiety, Depression, Panic Attacks - Endocrine Endocrine: absent: Palpitations, Polydipsia, Polyphagia, Polyuria - Hematologic/Lymphatic Hematologic: absent: Easy Bleeding, Easy Bruising Past Patient History - Infectious Disease Hx of Infectious Diseases: None - Past Medical History & Family History Past Medical History?: Yes - Past Social History Smoking Status: Never Smoked Chewing Tobacco Use: No Cigar Use: No Alcohol: > 2 Drinks/Day Drugs: Denies Home Situation {Lives}: With Family - CARDIAC Hx Hypertension: No - PULMONARY Hx Asthma: Yes Hx Bronchitis: Yes - NEUROLOGICAL Hx Migraine: Yes Hx Seizures: No - HEENT Hx HEENT Problems: No Hx Glaucoma: Yes (left eye) - RENAL Hx Chronic Kidney Disease: No - ENDOCRINE/METABOLIC Hx Endocrine Disorders: No - HEMATOLOGICAL/ONCOLOGICAL Hx Blood Disorders: No Hx Human Immunodeficiency Virus (HIV): No - INTEGUMENTARY Hx Dermatological Problems: No - MUSCULOSKELETAL/RHEUMATOLOGICAL Hx Arthritis: Yes - GASTROINTESTINAL Hx Gastritis: Yes - GENITOURINARY/GYNECOLOGICAL Hx Sexually Transmitted Disorders: No - PSYCHIATRIC Hx Bipolar Disorder: Yes Hx Depression: Yes Hx Schizophrenia: Yes - SURGICAL HISTORY Hx Surgeries: Yes Hx Musculoskeletal Surgery: Yes (right knee, right thumb) - ANESTHESIA Hx Anesthesia: Yes Hx Anesthesia Reactions: No Meds Allergies/Adverse Reactions: Allergies Allergy/AdvReac Type Severity Reaction Status Date / Time avocado Allergy URTICARIA Verified 09/26/17 16:54 Penicillins Allergy URTICARIA Verified 09/26/17 16:54 seafood Allergy URTICARIA Uncoded 07/15/17 17:10 Physical Exam - Head Exam Head Exam: ATRAUMATIC, NORMAL INSPECTION, NORMOCEPHALIC - Eye Exam Eye Exam: EOMI, Normal appearance Pupil Exam: NORMAL ACCOMODATION, PERRL - ENT Exam ENT Exam: Mucous Membranes Dry, Normal Exam, Normal External Ear Exam - Neck Exam Neck exam: Positive for: Full Rom, Normal Inspection. Negative for: Lymphadenopathy, Tenderness - Respiratory Exam Respiratory Exam: Clear to Auscultation Bilateral. absent: Rales, Rhonchi, Wheezes - Cardiovascular Exam Cardiovascular Exam: REGULAR RHYTHM, RRR, +S1, +S2. absent: Gallop, JVD, Rubs - GI/Abdominal Exam Additional comments: Full, soft, ve bowel sounds, tender at epigastric region, no guarding, no rebound tenderness - Rectal Exam Rectal Exam: Deferred - Extremities Exam Extremities exam: Positive for: full ROM, normal inspection. Negative for: calf tenderness, joint swelling, pedal edema - Back Exam Back exam: NORMAL INSPECTION. absent: CVA tenderness (L), CVA tenderness (R) - Neurological Exam Neurological exam: Alert, CN II-XII Intact, Oriented x3, Reflexes Normal - Psychiatric Exam Psychiatric exam: Normal Affect, Normal Mood - Skin Skin Exam: Dry, Normal Color, Warm Results - Vital Signs Recent Vital Signs: Last Vital Signs Temp 98.4 F 09/26/17 16:55 Pulse 59 L 09/26/17 16:55 Resp 16 09/26/17 16:55 BP 120/53 L 09/26/17 16:55 Pulse Ox 97 09/26/17 20:49 - Labs Result Diagrams: 09/26/17 17:41 09/26/17 17:41 Labs: Laboratory Results - last 24 hr 09/26/17 09/26/17 17:41 17:41 WBC 8.2 RBC 4.10 Hgb 11.5 L Hct 34.9 MCV 85.0 MCH 28.1 MCHC 33.0 RDW 16.1 H Plt Count 275 MPV 7.5 Neut % (Auto) 85.5 H Lymph % (Auto) 8.6 L Rush % (Auto) 5.3 Eos % (Auto) 0.2 Baso % (Auto) 0.4 Neut # (Auto) 7.0 Lymph # (Auto) 0.7 L Rush # (Auto) 0.4 Eos # (Auto) 0.0 Baso # (Auto) 0.0 Neutrophils % (Manual) 80 H Band Neutrophils % 3 H Lymphocytes % (Manual) 11 L Monocytes % (Manual) 6 Platelet Estimate Normal Hypochromasia (manual) Slight Poikilocytosis (manual Slight Anisocytosis (manual) Slight Microcytosis (manual) Slight Sodium 141 Potassium 4.2 Chloride 103 Carbon Dioxide 24 Anion Gap 18 BUN 11 Creatinine 0.7 Est GFR ( Amer) > 60 Est GFR (Non-Af Amer) > 60 Random Glucose 129 H Calcium 9.3 Total Bilirubin 1.4 H AST 121 H D ALT 69 H D Alkaline Phosphatase 36 L D Total Protein 8.0 Albumin 4.6 Globulin 3.5 Albumin/Globulin Ratio 1.3 - Imaging and Cardiology CT abdomen/Pelvis Additional comment: EXAM: CT Abdomen and Pelvis With Intravenous Contrast FINDINGS: Lung bases: No consolidation. ABDOMEN: Liver: Unremarkable. Gallbladder and bile ducts: Mild central intrahepatic biliary dilation. Common bile duct is dilated measuring up to 12 mm. No calcified stones. Pancreas: Unremarkable. No ductal dilation. Spleen: Borderline splenomegaly. Adrenals: Unremarkable. No mass. Kidneys and ureters: Unremarkable. No hydronephrosis. Stomach and bowel: Oral contrast reaches the proximal small bowel. Evaluation of remainder of the bowel is limited due to lack of oral contrast opacification. PELVIS: Appendix: No findings to suggest acute appendicitis. Bladder: Partially contracted. Reproductive: Unremarkable as visualized. ABDOMEN and PELVIS: Intraperitoneal space: Unremarkable. No free air. No drainable fluid collection. Bones/joints: No acute fracture. No dislocation. Soft tissues: Tiny fat containing umbilical hernia. Vasculature: Unremarkable. No abdominal aortic aneurysm. Lymph nodes: Unremarkable. No enlarged lymph nodes. IMPRESSION: Mild central intrahepatic biliary dilation. Common bile duct is dilated measuring up to 12 mm. Clinical correlation and if are noted further evaluation with MRCP can be considered. Assessment & Plan - Assessment and Plan (Free Text) Assessment: #. Abdominal Pain #. Vomiting #. Transaminitis #. Dilated Common Bile duct Plan: 46 years old female with hx of drinking > 2 alcoholic drinks daily, arthritis, Bipolar and Gastritis who comes to the ED with a 2hours hx of generalized abdominal pain radiating to the lower back, which later localized at the epigastric region. This was associated with chills and multiple episodes of vomiting. She had eaten [place] food Two hours earlier. She had no diarrhea, Chest pain, fever nor urinary symptoms. #. Abdominal Pain with vomiting in patient with normal lipase and mildly elevated liver enzymes. Most likely related to gastritis - NPO - Pepcid - IV fluids - Zofran - Pain management with Toradol #. Transaminitis - IV Fluids - Follow LFT #. Dilated Common Bile duct. Etiology unclear- Consult Dr White GI - MRCP ordered to r/o obstructing stone #. DVT Prophylaxis with SCD #. Code Status: Full - Date & Time Date: 09/26/17 Time: 21:18
[2017-09-26] MEDS ORDERED: Sodium Chloride 0.9% 1,000 ML IV SCH (22:00)
[2017-09-26] MEDS ORDERED: Multivitamin (MVI) 10 ML, Thiamine 100 MG, Folic Acid 1 MG in Dextrose 5%/0.45% NS 1,00... IV ONE (22:56)
[2017-09-27 00:03] LABS: SQUAMOUS EPITHIAL 1 /hpf (0-5); URINE BILIRUBIN NEGATIVE (NEGATIVE); URINE BLOOD NEGATIVE (NEGATIVE); URINE CLARITY CLEAR (Clear); URINE COLOR AMBER (YELLOW); URINE GLUCOSE (UA) NEG (Normal); URINE LEUKOCYTE ESTERASE NEG Leu/uL (Negative); URINE PROTEIN NEGATIVE (NEGATIVE)
[2017-09-27 07:33] LABS: BASO % 0.3 % (0.0-2.0); EOS % 0.6 % (0.0-4.0); HEMOGLOBIN 10.7 g/dL (12.0-16.0); LYMPH # 0.9 K/uL (1.0-4.3); MEAN CELL VOLUME 84.1 fl (81.0-99.0); MEAN CORPUSCULAR HEMOGLOBIN 28.5 pg (27.0-31.0); MEAN CORPUSCULAR HGB CONC 33.9 g/dL (33.0-37.0); MEAN PLATELET VOLUME 7.7 fl (7.2-11.7); MONO # 0.4 K/uL (0.0-0.8); MONO % 6.7 % (0.0-10.0); NEUT # 4.1 K/uL (1.8-7.0); NEUT % 76.4 % (50.0-75.0); RBC 3.76 Mil/uL (3.80-5.20); RED CELL DISTRIBUTION WIDTH 16.1 % (11.5-14.5); WHITE BLOOD COUNT 5.4 K/uL (4.8-10.8)
[2017-09-27 07:45] LABS: ALB/GLOB RATIO 1.2 (1.0-2.1); ALBUMIN 3.7 g/dL (3.5-5.0); ALT/SGPT 156 U/L (9-52); AST/SGOT 240 U/L (14-36); BILIRUBIN,DIRECT 1.4 mg/ml (0.0-0.4); BLOOD UREA NITROGEN 9 mg/dl (7-17); CALCIUM 8.6 mg/dL (8.4-10.2); GFR AFRICAN-AMERICAN > 60; GFR NON-AFRICAN AMERICAN > 60
--- NOTE | 2017-09-27 07:57 | CP.PCM.CON ---
<Jose Elias Galvan - Last Filed: 09/27/17 10:59> History of Present Illness - History of Present Illness History of Present Illness: GI Fellow PGY4, Consult note. Consulted for dilated CBD. Maya Kidd is a pleasant WF with history of substance abuse, psychiatric disorders presenting with acute abdominal pain and vomiting. Patient states she was doing well until yesterday after eating [place] food for lunch. She developed diffuse 10/10 abdominal pain concentrated in epigastric area and radiated to the low back. She admits vomiting ~10x of food product, denies blood , coffee ground substance. She denies fever, diarrhea, hx of GB disease, recent unintentional weight changes. She states she drinks alcohol frequently but last drink was Sunday. She states she is in an alcohol/depression program that is helping her. W/U in ED found she was afebrile with NO leukocytosis. CT was said to have dilated CBD. MRCP ordered lastnight, but not performed at the time of my exam. PMHx - OA, Bipolar, schizophrenia PSHx - Knee, finger and wrist orthopedic surgeries. Denies EGD, colonoscopy. FMHx - mom - cervical cancer. Dad - prostate cancer. SocHx - Denies tobacco use. She drinks daily since her 20s. 12pt ROS completed and negative except for above. Past Patient History - Infectious Disease Hx of Infectious Diseases: None - Past Medical History & Family History Past Medical History?: Yes - Past Social History Smoking Status: Never Smoked Chewing Tobacco Use: No Cigar Use: No Alcohol: > 2 Drinks/Day Drugs: Denies Home Situation {Lives}: With Family - CARDIAC Hx Hypertension: No - PULMONARY Hx Asthma: Yes Hx Bronchitis: Yes - NEUROLOGICAL Hx Migraine: Yes Hx Seizures: No - HEENT Hx HEENT Problems: No Hx Glaucoma: Yes (left eye) - RENAL Hx Chronic Kidney Disease: No - ENDOCRINE/METABOLIC Hx Endocrine Disorders: No - HEMATOLOGICAL/ONCOLOGICAL Hx Blood Disorders: No Hx Human Immunodeficiency Virus (HIV): No - INTEGUMENTARY Hx Dermatological Problems: No - MUSCULOSKELETAL/RHEUMATOLOGICAL Hx Arthritis: Yes - GASTROINTESTINAL Hx Gastritis: Yes - GENITOURINARY/GYNECOLOGICAL Hx Sexually Transmitted Disorders: No - PSYCHIATRIC Hx Bipolar Disorder: Yes Hx Depression: Yes Hx Schizophrenia: Yes - SURGICAL HISTORY Hx Surgeries: Yes Hx Musculoskeletal Surgery: Yes (right knee, right thumb) - ANESTHESIA Hx Anesthesia: Yes Hx Anesthesia Reactions: No Meds Allergies/Adverse Reactions: Allergies Allergy/AdvReac Type Severity Reaction Status Date / Time avocado Allergy URTICARIA Verified 09/26/17 16:54 Penicillins Allergy URTICARIA Verified 09/26/17 16:54 seafood Allergy URTICARIA Uncoded 07/15/17 17:10 - Medications Medications: Current Medications Famotidine (Pepcid) 20 mg IVP DAILY [facility] Ketorolac Tromethamine (Toradol) 15 mg IVP Q6 PRN PRN Reason: Pain, moderate (4-7) Ketorolac Tromethamine (Toradol) 30 mg IVP Q6 PRN PRN Reason: Pain, severe (8-10) Lorazepam (Ativan) 1 mg IVP Q6 PRN PRN Reason: Symptoms of alcohol withdrawl Ondansetron HCl (Zofran Inj) 4 mg IVP Q4 PRN PRN Reason: Nausea/Vomiting Pneumococcal Polyvalent Vaccine (Pneumovax 23 Vaccine) 0.5 ml IM .ONCE ONE Stop: 09/27/17 09:01 Thiamine HCl (Vitamin B1 Inj) 100 mg IM DAILY [facility] Stop: 09/28/17 09:01 Physical Exam - Constitutional Appears: Well, Non-toxic, No Acute Distress - Head Exam Head Exam: ATRAUMATIC, NORMAL INSPECTION, NORMOCEPHALIC - Eye Exam Eye Exam: EOMI, Normal appearance, PERRL - ENT Exam ENT Exam: Mucous Membranes Moist, Normal Exam - Neck Exam Neck exam: Positive for: Normal Inspection - Respiratory Exam Respiratory Exam: Clear to Auscultation Bilateral, NORMAL BREATHING PATTERN - Cardiovascular Exam Cardiovascular Exam: REGULAR RHYTHM - GI/Abdominal Exam GI & Abdominal Exam: Normal Bowel Sounds, Soft. absent: Guarding, Organomegaly , Tenderness - Neurological Exam Neurological exam: Alert, CN II-XII Intact, Oriented x3 - Psychiatric Exam Psychiatric exam: Normal Affect, Normal Mood - Skin Skin Exam: Dry, Intact Results - Vital Signs Recent Vital Signs: Last Vital Signs Temp 97.8 F 09/27/17 00:01 Pulse 53 L 09/27/17 00:01 Resp 18 09/27/17 00:01 BP 100/64 09/27/17 00:01 Pulse Ox 96 09/27/17 00:01 - Labs Result Diagrams: 09/27/17 06:37 09/27/17 06:37 Labs: Laboratory Results - last 24 hr 09/26/17 09/26/17 09/26/17 17:41 17:41 22:12 WBC 8.2 RBC 4.10 Hgb 11.5 L Hct 34.9 MCV 85.0 MCH 28.1 MCHC 33.0 RDW 16.1 H Plt Count 275 MPV 7.5 Neut % (Auto) 85.5 H Lymph % (Auto) 8.6 L Hyde % (Auto) 5.3 Eos % (Auto) 0.2 Baso % (Auto) 0.4 Neut # (Auto) 7.0 Lymph # (Auto) 0.7 L Hyde # (Auto) 0.4 Eos # (Auto) 0.0 Baso # (Auto) 0.0 Neutrophils % (Manual) 80 H Band Neutrophils % 3 H Lymphocytes % (Manual) 11 L Monocytes % (Manual) 6 Platelet Estimate Normal Hypochromasia (manual) Slight Poikilocytosis (manual Slight Anisocytosis (manual) Slight Microcytosis (manual) Slight Sodium 141 Potassium 4.2 Chloride 103 Carbon Dioxide 24 Anion Gap 18 BUN 11 Creatinine 0.7 Est GFR ( Amer) > 60 Est GFR (Non-Af Amer) > 60 Random Glucose 129 H Calcium 9.3 Total Bilirubin 1.4 H Direct Bilirubin AST 121 H D ALT 69 H D Alkaline Phosphatase 36 L D Total Protein 8.0 Albumin 4.6 Globulin 3.5 Albumin/Globulin Ratio 1.3 Lipase 88 Urine Color Urine Clarity Urine pH Ur Specific [place] Urine Protein Urine Glucose (UA) Urine Ketones Urine Blood Urine Nitrate Urine Bilirubin Urine Urobilinogen Ur Leukocyte Esterase Urine RBC (Auto) Urine Microscopic WBC Ur Squamous Epith Cells 09/26/17 09/27/17 09/27/17 23:45 06:37 06:37 WBC 5.4 RBC 3.76 L Hgb 10.7 L Hct 31.6 L MCV 84.1 MCH 28.5 MCHC 33.9 RDW 16.1 H Plt Count 225 MPV 7.7 Neut % (Auto) 76.4 H Lymph % (Auto) 16.0 L Hyde % (Auto) 6.7 Eos % (Auto) 0.6 Baso % (Auto) 0.3 Neut # (Auto) 4.1 Lymph # (Auto) 0.9 L Hyde # (Auto) 0.4 Eos # (Auto) 0.0 Baso # (Auto) 0.0 Neutrophils % (Manual) Band Neutrophils % Lymphocytes % (Manual) Monocytes % (Manual) Platelet Estimate Hypochromasia (manual) Poikilocytosis (manual Anisocytosis (manual) Microcytosis (manual) Sodium 141 Potassium 4.0 Chloride 105 Carbon Dioxide 32 H Anion Gap 8 L BUN 9 Creatinine 0.6 L Est GFR ( Amer) > 60 Est GFR (Non-Af Amer) > 60 Random Glucose 94 Calcium 8.6 Total Bilirubin 2.5 H Direct Bilirubin 1.4 H AST 240 H D ALT 156 H D Alkaline Phosphatase 33 L Total Protein 6.7 Albumin 3.7 Globulin 3.0 Albumin/Globulin Ratio 1.2 Lipase Urine Color [place] Urine Clarity Clear Urine pH 7.0 Ur Specific [place] > 1.060 H Urine Protein Negative Urine Glucose (UA) Neg Urine Ketones Negative Urine Blood Negative Urine Nitrate Negative Urine Bilirubin Negative Urine Urobilinogen 4.0 H Ur Leukocyte Esterase Neg Urine RBC (Auto) 6 H Urine Microscopic WBC 2 Ur Squamous Epith Cells 1 Assessment & Plan - Assessment and Plan (Free Text) Assessment: 46F presenting with acute abdominal pain and vomiting #Abdominal pain #Dilated CBD #Elevated liver tests - Mostly hepatocellular, less cholestatic pattern #Hepatosteatosis #Bipolar #OA Plan: -Afeb/HDS -Continue supportive care -CT image finding noted for CBD >1cm. Previous U/S showed CBD 3.5mm in 2016. -Differential: Choledocolithiasis, PSC, neoplasm -Lipase nml -Currently minimal pain, afebrile and WBC normal. No obvious need for Abx at this time. -f/u MRCP results -Hepatitis panel, INR and liver failure work-up (ceruloplasmin, iron panel, autoimmune serology) ordered. -NPO for possible ERCP, pending imaging results and follow up Bili & alkphos. - - Date & Time Date: 09/27/17 Time: 08:02 <Miguel Angel Tavarez - Last Filed: 09/27/17 14:50> Meds - Medications Medications: Current Medications Dextrose/Sodium Chloride (Dextrose 5%/0.9% Ns 1000 Ml) 1,000 mls @ 125 mls/hr IV .Q8H [facility] Stop: 09/28/17 19:14 Last Admin: 09/27/17 11:15 Dose: 125 mls/hr Ketorolac Tromethamine (Toradol) 15 mg IVP Q6 PRN PRN Reason: Pain, moderate (4-7) Ketorolac Tromethamine (Toradol) 30 mg IVP Q6 PRN PRN Reason: Pain, severe (8-10) Lorazepam (Ativan) 1 mg IVP Q6 PRN PRN Reason: Symptoms of alcohol withdrawl Ondansetron HCl (Zofran Inj) 4 mg IVP Q4 PRN PRN Reason: Nausea/Vomiting Pantoprazole Sodium (Protonix Inj) 40 mg IVP DAILY [facility] Last Admin: 09/27/17 12:50 Dose: 40 mg Thiamine HCl (Vitamin B1 Inj) 100 mg IM DAILY [facility] Stop: 09/28/17 09:01 Last Admin: 09/27/17 08:18 Dose: 100 mg Results - Vital Signs Recent Vital Signs: Last Vital Signs Temp 97.5 F L 09/27/17 09:00 Pulse 51 L 09/27/17 09:00 Resp 20 09/27/17 09:00 BP 119/74 09/27/17 09:00 Pulse Ox 97 09/27/17 13:25 - Labs Result Diagrams: 09/27/17 06:37 09/27/17 06:37 Labs: Laboratory Results - last 24 hr 09/26/17 09/26/17 09/26/17 17:41 17:41 22:12 WBC 8.2 RBC 4.10 Hgb 11.5 L Hct 34.9 MCV 85.0 MCH 28.1 MCHC 33.0 RDW 16.1 H Plt Count 275 MPV 7.5 Neut % (Auto) 85.5 H Lymph % (Auto) 8.6 L Hyde % (Auto) 5.3 Eos % (Auto) 0.2 Baso % (Auto) 0.4 Neut # (Auto) 7.0 Lymph # (Auto) 0.7 L Hyde # (Auto) 0.4 Eos # (Auto) 0.0 Baso # (Auto) 0.0 Neutrophils % (Manual) 80 H Band Neutrophils % 3 H Lymphocytes % (Manual) 11 L Monocytes % (Manual) 6 Platelet Estimate Normal Hypochromasia (manual) Slight Poikilocytosis (manual Slight Anisocytosis (manual) Slight Microcytosis (manual) Slight PT INR Sodium 141 Potassium 4.2 Chloride 103 Carbon Dioxide 24 Anion Gap 18 BUN 11 Creatinine 0.7 Est GFR ( Amer) > 60 Est GFR (Non-Af Amer) > 60 Random Glucose 129 H Calcium 9.3 Iron Total Bilirubin 1.4 H Direct Bilirubin AST 121 H D ALT 69 H D Alkaline Phosphatase 36 L D Total Protein 8.0 Albumin 4.6 Globulin 3.5 Albumin/Globulin Ratio 1.3 Lipase 88 Urine Color Urine Clarity Urine pH Ur Specific [place] Urine Protein Urine Glucose (UA) Urine Ketones Urine Blood Urine Nitrate Urine Bilirubin Urine Urobilinogen Ur Leukocyte Esterase Urine RBC (Auto) Urine Microscopic WBC Ur Squamous Epith Cells 09/26/17 09/27/17 09/27/17 23:45 06:37 06:37 WBC 5.4 RBC 3.76 L Hgb 10.7 L Hct 31.6 L MCV 84.1 MCH 28.5 MCHC 33.9 RDW 16.1 H Plt Count 225 MPV 7.7 Neut % (Auto) 76.4 H Lymph % (Auto) 16.0 L Hyde % (Auto) 6.7 Eos % (Auto) 0.6 Baso % (Auto) 0.3 Neut # (Auto) 4.1 Lymph # (Auto) 0.9 L Hyde # (Auto) 0.4 Eos # (Auto) 0.0 Baso # (Auto) 0.0 Neutrophils % (Manual) Band Neutrophils % Lymphocytes % (Manual) Monocytes % (Manual) Platelet Estimate Hypochromasia (manual) Poikilocytosis (manual Anisocytosis (manual) Microcytosis (manual) PT INR Sodium 141 Potassium 4.0 Chloride 105 Carbon Dioxide 32 H Anion Gap 8 L BUN 9 Creatinine 0.6 L Est GFR ( Amer) > 60 Est GFR (Non-Af Amer) > 60 Random Glucose 94 Calcium 8.6 Iron Total Bilirubin 2.5 H Direct Bilirubin 1.4 H AST 240 H D ALT 156 H D Alkaline Phosphatase 33 L Total Protein 6.7 Albumin 3.7 Globulin 3.0 Albumin/Globulin Ratio 1.2 Lipase Urine Color [place]ene Urine Clarity Clear Urine pH 7.0 Ur Specific [place] > 1.060 H Urine Protein Negative Urine Glucose (UA) Neg Urine Ketones Negative Urine Blood Negative Urine Nitrate Negative Urine Bilirubin Negative Urine Urobilinogen 4.0 H Ur Leukocyte Esterase Neg Urine RBC (Auto) 6 H Urine Microscopic WBC 2 Ur Squamous Epith Cells 1 09/27/17 09/27/17 12:52 12:52 WBC RBC Hgb Hct MCV MCH MCHC RDW Plt Count MPV Neut % (Auto) Lymph % (Auto) Hyde % (Auto) Eos % (Auto) Baso % (Auto) Neut # (Auto) Lymph # (Auto) Hyde # (Auto) Eos # (Auto) Baso # (Auto) Neutrophils % (Manual) Band Neutrophils % Lymphocytes % (Manual) Monocytes % (Manual) Platelet Estimate Hypochromasia (manual) Poikilocytosis (manual Anisocytosis (manual) Microcytosis (manual) PT 12.0 INR 1.1 Sodium Potassium Chloride Carbon Dioxide Anion Gap BUN Creatinine Est GFR ( Amer) Est GFR (Non-Af Amer) Random Glucose Calcium Iron 71 Total Bilirubin Direct Bilirubin AST ALT Alkaline Phosphatase Total Protein Albumin Globulin Albumin/Globulin Ratio Lipase Urine Color Urine Clarity Urine pH Ur Specific [place] Urine Protein Urine Glucose (UA) Urine Ketones Urine Blood Urine Nitrate Urine Bilirubin Urine Urobilinogen Ur Leukocyte Esterase Urine RBC (Auto) Urine Microscopic WBC Ur Squamous Epith Cells Attending/Attestation - Attestation I have personally seen and examined this patient.: Yes I have fully participated in the care of the patient.: Yes I have reviewed all pertinent clinical information: Yes Notes (Text): 09/27/17 14:46 This is a 46 yr old F with alcohol abuse and dependance presenting with acute abdominal pain and vomiting and concern for dilated CBD. No s/s of cholangitis. No choledocholithiasis. Multiple stones in the GB with a stone in neck of GB. No further GI intervention required. Please call surgical consult for further recs for GB. Hepatitis and autoimmune serologies sent. Alcohol cessation. Folic acid and B12 supplements.
[2017-09-27] MEDS: Thiamine 100 mg/ml Inj IM SCH (08:18)
[2017-09-27] MEDS ORDERED: Pneumococcal 23-Valent Vaccine IM ONE (09:00)
--- NOTE | 2017-09-27 10:53 | CT ---
Date of service: 09/26/2017 PROCEDURE: CT Abdomen and Pelvis with contrast HISTORY: Right-sided abdominal pain. COMPARISON: 07/15/2017 CT abdomen and pelvis. TECHNIQUE: Contrast dose: Radiation dose: Total exam DLP = mGy-cm. This CT exam was performed using one or more of the following dose reduction techniques: Automated exposure control, adjustment of the mA and/or kV according to patient size, and/or use of iterative reconstruction technique. FINDINGS: LOWER THORAX: Unremarkable. LIVER: Unremarkable. Mild intrahepatic bile duct dilatation. GALLBLADDER AND BILE DUCTS: Unremarkable gallbladder. Midline dilated common bile duct maximum diameter 13 mm. No significant intrahepatic bile duct dilatation. No evidence of choledocholithiasis or pancreatic mass. PANCREAS: Unremarkable. No gross lesion or ductal dilatation. SPLEEN: Unremarkable. ADRENALS: Unremarkable. No mass. KIDNEYS AND URETERS: Unremarkable. No hydronephrosis. No solid mass. VASCULATURE: Is Unremarkable. No aortic aneurysm. BOWEL: Unremarkable. No obstruction. No gross mural thickening. APPENDIX: Normal appendix. PERITONEUM: Unremarkable. No free fluid. No free air. LYMPH NODES: Unremarkable. No enlarged lymph nodes. BLADDER: Unremarkable. REPRODUCTIVE: Unremarkable. BONES: No acute fracture. OTHER FINDINGS: None. IMPRESSION: Mild dilatation of common bile duct etiology/significance uncertain. On a prior unenhanced CT scan performed 07/15/2017 normal diameter the common duct was apparent. This may reflect biliary dyskinesia. Concordant results (preliminary interpretation) provided by [facility]. Procedure Completed: 19:56 Preliminary ([facility]) Report: Dictated and Authenticated: 20:26. Final Interpretation: 10:51. September 27, 2017.
[2017-09-27] MEDS: Dextrose 5%/0.9% NS 1,000 ML IV SCH ×2 (11:15→19:58)
--- NOTE | 2017-09-27 13:03 | MRI ---
Date of service: 09/27/2017 PROCEDURE: Magnetic Resonance Cholangiopancreatography HISTORY: Abdominal pain, vomiting, elevated LFTs COMPARISON: None available. TECHNIQUE: Multiplanar, multisequence MR images of the abdomen were obtained, including heavily T2 weighted MRCP images of the biliary system. Rotating maximum intensity projection images of the biliary system were generated. FINDINGS: MRCP: The common bile duct is mildly enlarged measuring 8 mm. No evidence of choledocholithiasis. No intrahepatic biliary ductal dilatation. LIVER: Unremarkable. GALLBLADDER: Multiple small gallstones are seen. The gallbladder is mildly distended. A stone is seen in the neck of the gallbladder. SPLEEN: Unremarkable. PANCREAS: Unremarkable. ADRENALS: Unremarkable. KIDNEYS: Unremarkable. AORTA: No aneurysm. ASCITES: None. OTHER FINDINGS: None. IMPRESSION: Multiple gallstones. Mild gallbladder distention. No evidence of common duct stones
[2017-09-27 13:38] LABS: INR 1.1
[2017-09-27 14:37] LABS: IRON 71 ug/dL (37-170)
[2017-09-27 14:54] LABS: % IRON SATURATION 22 % (20-55); TOTAL IRON BINDING CAPACITY 330 ug/dL (250-450)
--- NOTE | 2017-09-27 15:51 | CP.PCM.PN ---
Subjective - Date & Time of Evaluation Date of Evaluation: 09/27/17 Time of Evaluation: 14:00 - Subjective Subjective: Pt is afebrile Abd Pain epigastric and RUQ pain however better with Pain meds no further vomiting no diarrhea denies CP no SOB Admits to drinking 3 glasses of alcohol last Sunday, denies alsoholism but admits to drinking heavily previous but quit after she joined an Alcohol/ Depression program Objective - Vital Signs/Intake and Output Vital Signs (last 24 hours): Temp Pulse Resp BP Pulse Ox 97.5 F L 51 L 20 119/74 97 09/27/17 09:00 09/27/17 09:00 09/27/17 09:00 09/27/17 09:00 09/27/17 13:25 - Medications Medications: Current Medications Hydromorphone HCl (Dilaudid) 0.5 mg IVP Q3 PRN PRN Reason: Pain, moderate (4-7) Dextrose/Sodium Chloride (Dextrose 5%/0.9% Ns 1000 Ml) 1,000 mls @ 125 mls/hr IV .Q8H [facility] Stop: 09/28/17 19:14 Last Admin: 09/27/17 11:15 Dose: 125 mls/hr Ketorolac Tromethamine (Toradol) 30 mg IVP Q6 [facility] Stop: 10/02/17 16:01 Lorazepam (Ativan) 1 mg IVP Q6 PRN PRN Reason: Symptoms of alcohol withdrawl Ondansetron HCl (Zofran Inj) 4 mg IVP Q4 PRN PRN Reason: Nausea/Vomiting Pantoprazole Sodium (Protonix Inj) 40 mg IVP DAILY [facility] Last Admin: 09/27/17 12:50 Dose: 40 mg Thiamine HCl (Vitamin B1 Inj) 100 mg IM DAILY [facility] Stop: 09/28/17 09:01 Last Admin: 09/27/17 08:18 Dose: 100 mg - Labs Labs: 09/27/17 06:37 09/27/17 06:37 PT 12.0 Seconds (9.8-13.1) 09/27/17 12:52 INR 1.1 09/27/17 12:52 - Constitutional Appears: Non-toxic, No Acute Distress - Head Exam Head Exam: ATRAUMATIC, NORMAL INSPECTION, NORMOCEPHALIC - Eye Exam Eye Exam: EOMI, Normal appearance, PERRL Pupil Exam: NORMAL ACCOMODATION - ENT Exam ENT Exam: Mucous Membranes Dry, Normal External Ear Exam - Neck Exam Neck Exam: Full ROM. absent: Meningismus - Respiratory Exam Respiratory Exam: NORMAL BREATHING PATTERN. absent: Respiratory Distress - Cardiovascular Exam Cardiovascular Exam: REGULAR RHYTHM, +S1, +S2 - GI/Abdominal Exam GI & Abdominal Exam: Soft, Tenderness (epigastric ), Normal Bowel Sounds - Extremities Exam Extremities Exam: Full ROM, Normal Capillary Refill. absent: Calf Tenderness - Back Exam Back Exam: absent: CVA tenderness (L), CVA tenderness (R) - Neurological Exam Neurological Exam: Alert, Awake, Oriented x3 Neuro motor strength exam: Left Upper Extremity: 5, Right Upper Extremity: 5, Left Lower Extremity: 5, Right Lower Extremity: 5 - Psychiatric Exam Psychiatric exam: Normal Affect, Normal Mood - Skin Skin Exam: Dry, Normal Color, Warm Assessment and Plan - Assessment and Plan (Free Text) Assessment: 46 years old female with hx of drinking ETOH, arthritis, Bipolar Dis and Gastritis presented to the ED with a 2hours hx of generalized abdominal pain radiating to the lower back, which later localized at the epigastric region. This was associated with chills and multiple episodes of vomiting. She had eaten [place] food prior to the pain. She had no diarrhea, Chest pain, fever nor urinary symptoms. CT of the abd : Mild dilatation of common bile duct etiology/significance uncertain. On a prior unenhanced CT scan performed 07/15/2017 normal diameter the common duct was apparent. This may reflect biliary dyskinesia. MRCP: Multiple small gallstones are seen. The gallbladder is mildly distended. A stone is seen in the neck of the gallbladder. 1. RUQ /Epigastric Pain with Abn LFT , MRCP showed GB distention with stone- prob sec to Acute Cholecystitis - NPO - IV fluids hydration - Pain management with Toradol -GI consulted- Dr Tavarez - Surgery consult for poss Lap Sherice 2. Abn LFTs prob sec to GB dis and ETOH - IV Fluids - LFT trended up - though noted Alk Phos is normal 3. Bipolar Dis 4. Alcoholism - pt denies any intake except for last Sunday - monitor for signs of withdrawal - cont Thiamine 5. Morbid Obesity with BMI 48.4 #. DVT Prophylaxis with SCD #. Code Status: Full
--- NOTE | 2017-09-27 18:19 | CP.PCM.CON ---
<Kamilah Martinez - Last Filed: 09/28/17 07:04> History of Present Illness - History of Present Illness History of Present Illness: General surgery consult note for Dr. Azra Martinez, PGY-2 Pt S & E at bedside at 1530 46F w/PMH sig for morbid obesity currently on bariatric surgery low fat diet consulted for cholelithiasis. Pt states that she presented to the hospital 1 day prior to evaluation due to RUQ abdominal pain that started after having Iranian food for lunch. Pt states pain was severe, radiated to right back, sharp, and constant after onset. Admits to nausea, >10 episodes of non bloody, non bilious emesis (food stuff), diaphoresis, and chills. Pt tried sandra charlie and ice tea - resulting in aggravation of pain. Pain alleviated by pain medications in the hospital. Pt reports this is her first episode of RUQ abdominal pain. No history of RUQ abdominal pain after eating spicy or fatty foods. Denies constipation, diarrhea, dysuria, hematuria, other complaints. Pt evaluated with MRCP with findings of CBD dilation to 8mm, cholelithiasis, no choledocholithiasis. T bili 2.5 from 1.4. LFTs trending up. Chart reviewed- pt seen in ED multiple times for RUQ/right flank pain PMH: Morbid obesity with plans for gastric sleeve next yr- currently on diet; schizophrenia, bipolar d/o, depression, osteoarthritis PSH: Right knee sx, Left 1st digit sx, right wrist sx All: Avocado, PCN, shellfish SH: Admits to daily drinking habit x 24+ yrs- unable to estimate amount, denies tobacco or illicit drug use FH: Mother has history of gallstones, never had gallbladder removed PMD: Dr. Stover Outpatient surgeon: Dr. Kaycee Suarez Review of Systems - Review of Systems All systems: reviewed and no additional remarkable complaints except - Constitutional Constitutional: Chills, Excessive Sweating (during pain episode), Weight Loss ( intentional). absent: Fever - EENT Eyes: absent: Change in Vision Nose/Mouth/Throat: Sore Throat (after multiple episodes of emesis) - Cardiovascular Cardiovascular: absent: Chest Pain, Palpitations - Gastrointestinal Gastrointestinal: Abdominal Pain, Nausea, Vomiting. absent: Constipation, Diarrhea, Hematemesis, Hematochezia - Genitourinary Genitourinary: absent: Change in Urinary Stream, Dysuria, Flank Pain, Hematuria , Urinary Frequency - Musculoskeletal Musculoskeletal: absent: Numbness, Tingling - Integumentary Integumentary: absent: Rash - Neurological Neurological: absent: Weakness Past Patient History - Infectious Disease Hx of Infectious Diseases: None - Past Medical History & Family History Past Medical History?: Yes - Past Social History Smoking Status: Never Smoked Chewing Tobacco Use: No Cigar Use: No Alcohol: > 2 Drinks/Day Drugs: Denies Home Situation {Lives}: With Family - CARDIAC Hx Hypertension: No - PULMONARY Hx Asthma: Yes Hx Bronchitis: Yes - NEUROLOGICAL Hx Migraine: Yes Hx Seizures: No - HEENT Hx HEENT Problems: No Hx Glaucoma: Yes (left eye) - RENAL Hx Chronic Kidney Disease: No - ENDOCRINE/METABOLIC Hx Endocrine Disorders: No - HEMATOLOGICAL/ONCOLOGICAL Hx Human Immunodeficiency Virus (HIV): No - INTEGUMENTARY Hx Dermatological Problems: No - MUSCULOSKELETAL/RHEUMATOLOGICAL Hx Arthritis: Yes - GASTROINTESTINAL Hx Gastritis: Yes - GENITOURINARY/GYNECOLOGICAL Hx Sexually Transmitted Disorders: No - PSYCHIATRIC Hx Bipolar Disorder: Yes Hx Depression: Yes Hx Schizophrenia: Yes - SURGICAL HISTORY Hx Surgeries: Yes Hx Musculoskeletal Surgery: Yes (right knee, right thumb) - ANESTHESIA Hx Anesthesia: Yes Hx Anesthesia Reactions: No Meds Allergies/Adverse Reactions: Allergies Allergy/AdvReac Type Severity Reaction Status Date / Time avocado Allergy URTICARIA Verified 09/26/17 16:54 Penicillins Allergy URTICARIA Verified 09/26/17 16:54 seafood Allergy URTICARIA Uncoded 07/15/17 17:10 - Medications Medications: Current Medications Hydromorphone HCl (Dilaudid) 0.5 mg IVP Q3 PRN PRN Reason: Pain, moderate (4-7) Dextrose/Sodium Chloride (Dextrose 5%/0.9% Ns 1000 Ml) 1,000 mls @ 125 mls/hr IV .Q8H [facility] Stop: 09/28/17 19:14 Last Admin: 09/27/17 11:15 Dose: 125 mls/hr Ketorolac Tromethamine (Toradol) 30 mg IVP Q6 [facility] Stop: 10/02/17 16:01 Last Admin: 09/27/17 17:20 Dose: 30 mg Lorazepam (Ativan) 1 mg IVP Q6 PRN PRN Reason: Symptoms of alcohol withdrawl Ondansetron HCl (Zofran Inj) 4 mg IVP Q4 PRN PRN Reason: Nausea/Vomiting Pantoprazole Sodium (Protonix Inj) 40 mg IVP DAILY [facility] Last Admin: 09/27/17 12:50 Dose: 40 mg Thiamine HCl (Vitamin B1 Inj) 100 mg IM DAILY [facility] Stop: 09/28/17 09:01 Last Admin: 09/27/17 08:18 Dose: 100 mg Physical Exam - Constitutional Appears: Non-toxic - Head Exam Head Exam: ATRAUMATIC, NORMAL INSPECTION, NORMOCEPHALIC - Eye Exam Eye Exam: EOMI, Normal appearance - ENT Exam ENT Exam: Mucous Membranes Moist, Normal Exam - Neck Exam Neck exam: Positive for: Full Rom, Normal Inspection - Respiratory Exam Respiratory Exam: NORMAL BREATHING PATTERN - Cardiovascular Exam Cardiovascular Exam: REGULAR RHYTHM, +S1, +S2 - GI/Abdominal Exam GI & Abdominal Exam: Normal Bowel Sounds, Soft. absent: Distended (obese), Firm , Guarding, Hernia, Tenderness Additional comments: no scars appreciated - Extremities Exam Extremities exam: Positive for: normal inspection. Negative for: pedal edema - Neurological Exam Neurological exam: Alert, CN II-XII Intact, Oriented x3 - Psychiatric Exam Psychiatric exam: Normal Affect, Normal Mood - Skin Skin Exam: Dry, Intact, Normal Color, Warm Results - Vital Signs Recent Vital Signs: Last Vital Signs Temp 98.3 F 09/27/17 17:00 Pulse 54 L 09/27/17 17:00 Resp 18 09/27/17 17:00 BP 135/81 09/27/17 17:00 Pulse Ox 96 09/27/17 17:00 - Labs Result Diagrams: 09/27/17 06:37 09/27/17 06:37 Labs: Laboratory Results - last 24 hr 09/26/17 09/26/17 09/26/17 17:41 17:41 22:12 WBC RBC Hgb Hct MCV MCH MCHC RDW Plt Count MPV Neut % (Auto) Lymph % (Auto) [place] % (Auto) Eos % (Auto) Baso % (Auto) Neut # (Auto) Lymph # (Auto) [place] # (Auto) Eos # (Auto) Baso # (Auto) Neutrophils % (Manual) 80 H Band Neutrophils % 3 H Lymphocytes % (Manual) 11 L Monocytes % (Manual) 6 Platelet Estimate Normal Hypochromasia (manual) Slight Poikilocytosis (manual Slight Anisocytosis (manual) Slight Microcytosis (manual) Slight PT INR Sodium 141 Potassium 4.2 Chloride 103 Carbon Dioxide 24 Anion Gap 18 BUN 11 Creatinine 0.7 Est GFR ( Amer) > 60 Est GFR (Non-Af Amer) > 60 Random Glucose 129 H Calcium 9.3 Iron TIBC % Saturation Total Bilirubin 1.4 H Direct Bilirubin AST 121 H D ALT 69 H D Alkaline Phosphatase 36 L D Total Protein 8.0 Albumin 4.6 Globulin 3.5 Albumin/Globulin Ratio 1.3 Lipase 88 Urine Color Urine Clarity Urine pH Ur Specific [place] Urine Protein Urine Glucose (UA) Urine Ketones Urine Blood Urine Nitrate Urine Bilirubin Urine Urobilinogen Ur Leukocyte Esterase Urine RBC (Auto) Urine Microscopic WBC Ur Squamous Epith Cells 09/26/17 09/27/17 09/27/17 23:45 06:37 06:37 WBC 5.4 RBC 3.76 L Hgb 10.7 L Hct 31.6 L MCV 84.1 MCH 28.5 MCHC 33.9 RDW 16.1 H Plt Count 225 MPV 7.7 Neut % (Auto) 76.4 H Lymph % (Auto) 16.0 L [place] % (Auto) 6.7 Eos % (Auto) 0.6 Baso % (Auto) 0.3 Neut # (Auto) 4.1 Lymph # (Auto) 0.9 L [place] # (Auto) 0.4 Eos # (Auto) 0.0 Baso # (Auto) 0.0 Neutrophils % (Manual) Band Neutrophils % Lymphocytes % (Manual) Monocytes % (Manual) Platelet Estimate Hypochromasia (manual) Poikilocytosis (manual Anisocytosis (manual) Microcytosis (manual) PT INR Sodium 141 Potassium 4.0 Chloride 105 Carbon Dioxide 32 H Anion Gap 8 L BUN 9 Creatinine 0.6 L Est GFR ( Amer) > 60 Est GFR (Non-Af Amer) > 60 Random Glucose 94 Calcium 8.6 Iron TIBC % Saturation Total Bilirubin 2.5 H Direct Bilirubin 1.4 H AST 240 H D ALT 156 H D Alkaline Phosphatase 33 L Total Protein 6.7 Albumin 3.7 Globulin 3.0 Albumin/Globulin Ratio 1.2 Lipase Urine Color [place] Urine Clarity Clear Urine pH 7.0 Ur Specific [place] > 1.060 H Urine Protein Negative Urine Glucose (UA) Neg Urine Ketones Negative Urine Blood Negative Urine Nitrate Negative Urine Bilirubin Negative Urine Urobilinogen 4.0 H Ur Leukocyte Esterase Neg Urine RBC (Auto) 6 H Urine Microscopic WBC 2 Ur Squamous Epith Cells 1 09/27/17 09/27/17 12:52 12:52 WBC RBC Hgb Hct MCV MCH MCHC RDW Plt Count MPV Neut % (Auto) Lymph % (Auto) [place] % (Auto) Eos % (Auto) Baso % (Auto) Neut # (Auto) Lymph # (Auto) [place] # (Auto) Eos # (Auto) Baso # (Auto) Neutrophils % (Manual) Band Neutrophils % Lymphocytes % (Manual) Monocytes % (Manual) Platelet Estimate Hypochromasia (manual) Poikilocytosis (manual Anisocytosis (manual) Microcytosis (manual) PT 12.0 INR 1.1 Sodium Potassium Chloride Carbon Dioxide Anion Gap BUN Creatinine Est GFR ( Amer) Est GFR (Non-Af Amer) Random Glucose Calcium Iron 71 TIBC 330 % Saturation 22 Total Bilirubin Direct Bilirubin AST ALT Alkaline Phosphatase Total Protein Albumin Globulin Albumin/Globulin Ratio Lipase Urine Color Urine Clarity Urine pH Ur Specific [place] Urine Protein Urine Glucose (UA) Urine Ketones Urine Blood Urine Nitrate Urine Bilirubin Urine Urobilinogen Ur Leukocyte Esterase Urine RBC (Auto) Urine Microscopic WBC Ur Squamous Epith Cells Assessment & Plan - Assessment and Plan (Free Text) Assessment: 46F w/RUQ abdominal pain, findings of cholelithiasis on MRCP w/slightly dilated CBD at 8mm Plan: FU Ab U/S FU AM labs Start ABx Will monitor Will obtain more information regarding bariatric surgeon Further recs pending imaging results etc DW Dr. Christopher Martinez, PGY-2 - Date & Time Date: 09/27/17 Time: 15:30 <Efrain White - Last Filed: 09/29/17 11:56> Results - Vital Signs Recent Vital Signs: Last Vital Signs Temp 98 F 09/28/17 16:19 Pulse 74 09/28/17 16:19 Resp 18 09/28/17 16:19 BP 109/62 09/28/17 16:19 Pulse Ox 96 09/28/17 16:19 - Labs Result Diagrams: 09/28/17 05:50 09/28/17 05:50 Labs: Laboratory Results - last 24 hr 09/27/17 12:52 GRISELDA Screen Negative GRISELDA Titer TEST NOT PERFORMED GRISELDA Titer 2 TEST NOT PERFORMED GRISELDA Pattern TEST NOT PERFORMED GRISELDA Pattern 2 TEST NOT PERFORMED Anti-Mitochondrial Ab Negative Assessment & Plan - Assessment and Plan (Free Text) Plan: Agree with above. 46 morbidly obese female with multiple obesity related co- morbidities and other medical conditions with recurrent symptomatic cholelithiasis I personally reviewed all imaging and diagnostic imaging and reports. No radiographic evidence of acute cholecystitis, does show some signs clinically but responded well to antibiotics. Patient has been seeing general/bariatric surgeon for possible sleeve gastrectomy. recommend continue 1 week Abx course and follow up with surgeon she sees routinely for better continuity of care. If she does not wish to do that she can see me in [facility] after discharge.
[2017-09-27] MEDS: metroNIDAZOLE 500mg/100ml NS 100 ML IVPB SCH (20:05)
[2017-09-27] MEDS: Ciprofloxacin 400mg/200ml D5W 400 MG/200 ML BAG IVPB SCH (21:57)
[2017-09-27 22:15] LABS: HEPATITIS B SURFACE AG Negative (NEGATIVE)
[2017-09-27 22:21] LABS: HEPATITIS A IGM NEGATIVE (NEGATIVE); HEPATITIS B CORE AB NEGATIVE (NEGATIVE)
[2017-09-27 22:33] LABS: HEPATITIS C ANTIBODY NEGATIVE (NEGATIVE)
[2017-09-28] MEDS: metroNIDAZOLE 500mg/100ml NS 100 ML IVPB SCH ×3 (01:39→16:23)
[2017-09-28 06:13] LABS: BASO % 0.5 % (0.0-2.0); HEMOGLOBIN 9.7 g/dL (12.0-16.0); LYMPH # 0.8 K/uL (1.0-4.3); LYMPH % 16.2 % (20.0-40.0); MEAN CELL VOLUME 84.2 fl (81.0-99.0); MEAN CORPUSCULAR HEMOGLOBIN 27.9 pg (27.0-31.0); MEAN CORPUSCULAR HGB CONC 33.2 g/dL (33.0-37.0); MEAN PLATELET VOLUME 7.3 fl (7.2-11.7); MONO # 0.3 K/uL (0.0-0.8); MONO % 5.5 % (0.0-10.0); NEUT # 3.8 K/uL (1.8-7.0); NEUT % 76.8 % (50.0-75.0); RBC 3.48 Mil/uL (3.80-5.20); RED CELL DISTRIBUTION WIDTH 16.1 % (11.5-14.5); WHITE BLOOD COUNT 4.9 K/uL (4.8-10.8)
[2017-09-28] MEDS: Dextrose 5%/0.9% NS 1,000 ML IV SCH ×2 (06:27→12:40)
[2017-09-28 06:33] LABS: ALB/GLOB RATIO 1.2 (1.0-2.1); ALBUMIN 3.5 g/dL (3.5-5.0); ALT/SGPT 127 U/L (9-52); AST/SGOT 112 U/L (14-36); BLOOD UREA NITROGEN 10 mg/dl (7-17); CALCIUM 8.2 mg/dL (8.4-10.2); GFR AFRICAN-AMERICAN > 60; GFR NON-AFRICAN AMERICAN > 60
--- NOTE | 2017-09-28 07:09 | CP.PCM.PN ---
Subjective - Date & Time of Evaluation Date of Evaluation: 09/28/17 Time of Evaluation: 07:08 - Subjective Subjective: General surgery progress note for Dr. Azra Martinez, PGY-2 Pt S & E at bedside at 0650 Pt reports feeling the same in terms of abdominal pain. Denies N & V, F & C. Per nursing- pt slept throughout the night, did not require pain medication. Objective - Vital Signs/Intake and Output Vital Signs (last 24 hours): Temp Pulse Resp BP Pulse Ox 97.8 F 54 L 17 144/82 93 L 09/28/17 06:31 09/28/17 06:31 09/28/17 06:31 09/28/17 06:31 09/28/17 06:31 - Medications Medications: Current Medications Hydromorphone HCl (Dilaudid) 0.5 mg IVP Q3 PRN PRN Reason: Pain, moderate (4-7) Dextrose/Sodium Chloride (Dextrose 5%/0.9% Ns 1000 Ml) 1,000 mls @ 125 mls/hr IV .Q8H [facility] Stop: 09/28/17 19:14 Last Admin: 09/28/17 06:27 Dose: 125 mls/hr Ciprofloxacin (Cipro 400mg/200ml Dsw) 400 mg in 200 mls @ 200 mls/hr IVPB Q12 ILEANA PRN Reason: Protocol Last Admin: 09/27/17 21:57 Dose: 200 mls/hr Metronidazole (Flagyl 500mg/100ml Ns) 100 mls @ 100 mls/hr IVPB Q8 ILEANA PRN Reason: Protocol Last Admin: 09/28/17 01:39 Dose: 100 mls/hr Ketorolac Tromethamine (Toradol) 30 mg IVP Q6 [facility] Stop: 10/02/17 16:01 Last Admin: 09/28/17 04:25 Dose: Not Given Lorazepam (Ativan) 1 mg IVP Q6 PRN PRN Reason: Symptoms of alcohol withdrawl Ondansetron HCl (Zofran Inj) 4 mg IVP Q4 PRN PRN Reason: Nausea/Vomiting Pantoprazole Sodium (Protonix Inj) 40 mg IVP DAILY [facility] Last Admin: 09/27/17 12:50 Dose: 40 mg Thiamine HCl (Vitamin B1 Inj) 100 mg IM DAILY [facility] Stop: 09/28/17 09:01 Last Admin: 09/27/17 08:18 Dose: 100 mg - Labs Labs: 09/28/17 05:50 09/28/17 05:50 PT 12.0 Seconds (9.8-13.1) 09/27/17 12:52 INR 1.1 09/27/17 12:52 - Constitutional Appears: Non-toxic, No Acute Distress - Head Exam Head Exam: ATRAUMATIC, NORMAL INSPECTION, NORMOCEPHALIC - Eye Exam Eye Exam: EOMI, Normal appearance - ENT Exam ENT Exam: Mucous Membranes Moist, Normal Exam - Neck Exam Neck Exam: Full ROM, Normal Inspection - Respiratory Exam Respiratory Exam: Clear to Ausculation Bilateral, NORMAL BREATHING PATTERN - Cardiovascular Exam Cardiovascular Exam: REGULAR RHYTHM, +S1, +S2 - GI/Abdominal Exam GI & Abdominal Exam: Guarding (Epigastric), Soft, Tenderness (mild, epigastric, RUQ). absent: Distended (obese), Firm - Extremities Exam Extremities Exam: Normal Inspection - Neurological Exam Neurological Exam: Alert, Awake, CN II-XII Intact, Oriented x3 - Psychiatric Exam Psychiatric exam: Normal Affect, Normal Mood - Skin Skin Exam: Dry, Intact, Normal Color, Warm Assessment and Plan - Assessment and Plan (Free Text) Assessment: 46F w/RUQ abdominal pain, findings of cholelithiasis on MRCP w/slightly dilated CBD at 8mm Plan: FU Ab U/S AM labs- T bili 1.1 from 2.5; AST & ALT down trending, no leukocytosis. Afebrile. OOBTC Ambulate Cont ABx Further recs pending imaging DW Dr. Christopher Martinez, PGY-2
[2017-09-28 07:48] VITALS: RESP 18
[2017-09-28 08:24] LABS: CERULOPLASMIN 28 mg/dL (18-53)
[2017-09-28] MEDS: Thiamine 100 mg/ml Inj IM SCH (10:05)
--- NOTE | 2017-09-28 11:53 | US ---
Date of service: 09/28/2017 HISTORY: dilated CBD on CT/MRCP; gallstones COMPARISON: None. TECHNIQUE: Sonographic evaluation of the right upper quadrant of the abdomen. FINDINGS: LIVER: Measures 18.0 cm in length. Normal echogenicity of the liver parenchyma. No mass. No intrahepatic bile duct dilatation. GALLBLADDER: A distended gallbladder appreciate with cholelithiasis layering the dependent portion. Gallbladder wall does not appear significantly thickened. No pericholecystic fluid collection. No reported sonographic Padilla sign. Clinically correlate for potential cholecystitis nevertheless. COMMON BILE DUCT: Measures 7.9 mm. No stones. No dilatation. PANCREAS: Unremarkable as visualized. No mass. No ductal dilatation. RIGHT KIDNEY: Measures 11.6 cm in length. Normal echogenicity. No calculus, mass, or hydronephrosis. AORTA: No aneurysmal dilatation. IVC: Unremarkable. OTHER FINDINGS: Incidentally noted is an enlarged spleen up to 15.9 cm without defined focal mass. Interrogation left kidney was added but is limited by body habitus. Normal left renal size appreciate without gross hydronephrosis. IMPRESSION: Cholelithiasis. Common bile duct is dilated to 7.9 mm without demonstrated choledocholithiasis. Consider follow-up MRCP exam nevertheless. Splenomegaly.
[2017-09-28] MEDS: Ciprofloxacin 400mg/200ml D5W 400 MG/200 ML BAG IVPB SCH (12:40)
[2017-09-28 16:20] VITALS: BP 109/62; PULSE 74; TEMP 98; O2SAT 96
--- NOTE | 2017-09-28 16:51 | CP.PCM.DIS ---
Provider - Provider Date of Admission: 09/27/17 19:23 Attending physician: Mik Davis Primary care physician: Dr Ck Luu Consults: GI : DR Tavarez Surgery : Dr Mckenzie White Time Spent in preparation of Discharge (in minutes): 45 Diagnosis - Discharge Diagnosis (1) Abdominal pain Status: Acute (2) Common bile duct dilatation Status: Acute (3) Biliary colic Status: Acute (4) Abnormal LFTs (liver function tests) Status: Acute (5) Cholelithiasis Status: Acute (6) Bipolar depression Status: Chronic (7) Obesity, morbid, BMI 40.0-49.9 Status: Chronic (8) DVT prophylaxis Status: Acute Hospital Course - Lab Results Lab Results: Micro Results 09/26/17 23:45 Urine,Clean Catch Urine Culture - Final 10-50,000 CFU/ML. MULTIPLE SPECIES. PROBABLE CONTAMINATION. Most Recent Lab Values WBC 4.9 K/uL (4.8-10.8) 09/28/17 05:50 RBC 3.48 Mil/uL (3.80-5.20) L 09/28/17 05:50 Hgb 9.7 g/dL (12.0-16.0) L 09/28/17 05:50 Hct 29.3 % (34.0-47.0) L 09/28/17 05:50 MCV 84.2 fl (81.0-99.0) 09/28/17 05:50 MCH 27.9 pg (27.0-31.0) 09/28/17 05:50 MCHC 33.2 g/dL (33.0-37.0) 09/28/17 05:50 RDW 16.1 % (11.5-14.5) H 09/28/17 05:50 Plt Count 203 K/uL (130-400) 09/28/17 05:50 MPV 7.3 fl (7.2-11.7) 09/28/17 05:50 Neut % (Auto) 76.8 % (50.0-75.0) H 09/28/17 05:50 Lymph % (Auto) 16.2 % (20.0-40.0) L 09/28/17 05:50 [place] % (Auto) 5.5 % (0.0-10.0) 09/28/17 05:50 Eos % (Auto) 1.0 % (0.0-4.0) 09/28/17 05:50 Baso % (Auto) 0.5 % (0.0-2.0) 09/28/17 05:50 Neut # (Auto) 3.8 K/uL (1.8-7.0) 09/28/17 05:50 Lymph # (Auto) 0.8 K/uL (1.0-4.3) L 09/28/17 05:50 [place] # (Auto) 0.3 K/uL (0.0-0.8) 09/28/17 05:50 Eos # (Auto) 0.0 K/uL (0.0-0.7) 09/28/17 05:50 Baso # (Auto) 0.0 K/uL (0.0-0.2) 09/28/17 05:50 Neutrophils % (Manual) 80 % (42-75) H 09/26/17 17:41 Band Neutrophils % 3 % (0-2) H 09/26/17 17:41 Lymphocytes % (Manual) 11 % (20-50) L 09/26/17 17:41 Monocytes % (Manual) 6 % (0-10) 09/26/17 17:41 Platelet Estimate Normal (NORMAL) 09/26/17 17:41 Hypochromasia (manual) Slight 09/26/17 17:41 Poikilocytosis (manual Slight 09/26/17 17:41 Anisocytosis (manual) Slight 09/26/17 17:41 Microcytosis (manual) Slight 09/26/17 17:41 PT 12.0 Seconds (9.8-13.1) 09/27/17 12:52 INR 1.1 09/27/17 12:52 Sodium 141 mmol/l (132-148) 09/28/17 05:50 Potassium 3.7 MMOL/L (3.6-5.0) 09/28/17 05:50 Chloride 108 mmol/L (98-107) H 09/28/17 05:50 Carbon Dioxide 27 mmol/L (22-30) 09/28/17 05:50 Anion Gap 10 (10-20) 09/28/17 05:50 BUN 10 mg/dl (7-17) 09/28/17 05:50 Creatinine 0.7 mg/dl (0.7-1.2) 09/28/17 05:50 Est GFR ( Amer) > 60 09/28/17 05:50 Est GFR (Non-Af Amer) > 60 09/28/17 05:50 Random Glucose 98 mg/dL (65-105) 09/28/17 05:50 Calcium 8.2 mg/dL (8.4-10.2) L 09/28/17 05:50 Iron 71 ug/dL (37-170) 09/27/17 12:52 TIBC 330 ug/dL (250-450) 09/27/17 12:52 % Saturation 22 % (20-55) 09/27/17 12:52 Total Bilirubin 1.1 mg/dl (0.2-1.3) 09/28/17 05:50 Direct Bilirubin 1.4 mg/ml (0.0-0.4) H 09/27/17 06:37 AST 112 U/L (14-36) H D 09/28/17 05:50 ALT 127 U/L (9-52) H 09/28/17 05:50 Alkaline Phosphatase 36 U/L (38-126) L 09/28/17 05:50 Total Protein 6.3 G/DL (6.3-8.2) 09/28/17 05:50 Albumin 3.5 g/dL (3.5-5.0) 09/28/17 05:50 Globulin 2.8 gm/dL (2.2-3.9) 09/28/17 05:50 Albumin/Globulin Ratio 1.2 (1.0-2.1) 09/28/17 05:50 Ceruloplasmin 28 mg/dL (18-53) 09/27/17 12:52 Lipase 88 U/L (23-300) 09/26/17 22:12 Urine Color Ilene (YELLOW) 09/26/17 23:45 Urine Clarity Clear (Clear) 09/26/17 23:45 Urine pH 7.0 (5.0-8.0) 09/26/17 23:45 Ur Specific [place] > 1.060 (1.003-1.030) H 09/26/17 23:45 Urine Protein Negative mg/dL (NEGATIVE) 09/26/17 23:45 Urine Glucose (UA) Neg mg/dL (Normal) 09/26/17 23:45 Urine Ketones Negative mg/dL (NEGATIVE) 09/26/17 23:45 Urine Blood Negative (NEGATIVE) 09/26/17 23:45 Urine Nitrate Negative (NEGATIVE) 09/26/17 23:45 Urine Bilirubin Negative (NEGATIVE) 09/26/17 23:45 Urine Urobilinogen 4.0 mg/dL (0.2-1.0) H 09/26/17 23:45 Ur Leukocyte Esterase Neg Natalie/uL (Negative) 09/26/17 23:45 Urine RBC (Auto) 6 /hpf (0-3) H 09/26/17 23:45 Urine Microscopic WBC 2 /hpf (0-5) 09/26/17 23:45 Ur Squamous Epith Cells 1 /hpf (0-5) 09/26/17 23:45 IgG 986.1 mg/dL (700.0-1600.0) 09/27/17 12:52 Anti-Mitochondrial Ab Negative (Negative) 09/27/17 12:52 Hepatitis A IgM Ab Negative (NEGATIVE) 09/27/17 12:52 Hep Bs Antigen Negative (NEGATIVE) 09/27/17 12:52 Hep B Core IgM Ab Negative (NEGATIVE) 09/27/17 12:52 Hepatitis C Antibody Negative (NEGATIVE) 09/27/17 12:52 - Hospital Course Hospital Course: 46 years old female with hx of drinking ETOH, arthritis, Bipolar Dis and Gastritis presented to the ED with a 2hours hx of generalized abdominal pain radiating to the lower back, which later localized at the epigastric region. This was associated with chills and multiple episodes of vomiting. She had eaten [place] food prior to the pain. She had no diarrhea, Chest pain, fever nor urinary symptoms. CT of the abd : Mild dilatation of common bile duct etiology/significance uncertain. On a prior unenhanced CT scan performed 07/15/2017 normal diameter the common duct was apparent. This may reflect biliary dyskinesia. MRCP: Multiple small gallstones are seen. The gallbladder is mildly distended. A stone is seen in the neck of the gallbladder. 1. Cholelithiasis with Biliary Colic and Abn LFT - IV fluids hydration - IV Cipro and Flagyl - Pain management with Toradol -GI consulted- Dr Tavarez - Surgery consulted - Surgery rec to have Elective Cholecystectomy . Pt had stated that she is scheduled for Bariatric Surgery , Surgical Team rec that pt ff up with her Bariatric surgeon and have Cholecystectomy done together with the Gastric Sleeve surgery. - Pt denies pain at present, tolerating PO diet. - discussed with pt and her mother who was at bedside to return to the ED if her sxs recurs. 2. Abn LFTs prob sec to GB dis and ETOH - IV Fluids - LFT elevated , improving - ff up with PMD rasheed 3. Bipolar Dis cont Zoloft 4. Alcoholism - pt denies any intake except for last Sunday - monitor for signs of withdrawal - cont Thiamine - Pt is in an Alcohol/Depression Rehab program - advised to ff up rasheed 5. Morbid Obesity with BMI 48.4 pt is scheduled for Gastric Sleeve surgery - pt to ff up with her surgeonasap #. DVT Prophylaxis with SCD #. Code Status: Full Discharge Exam - Head Exam Head Exam: ATRAUMATIC, NORMAL INSPECTION, NORMOCEPHALIC - Eye Exam Eye Exam: EOMI, Normal appearance, PERRL Pupil Exam: NORMAL ACCOMODATION - ENT Exam ENT Exam: Mucous Membranes Moist, Normal External Ear Exam - Neck Exam Neck exam: Full Rom - Respiratory Exam Respiratory Exam: NORMAL BREATHING PATTERN. absent: Respiratory Distress - Cardiovascular Exam Cardiovascular Exam: REGULAR RHYTHM, +S1, +S2 - GI/Abdominal Exam GI & Abdominal Exam: Normal Bowel Sounds, Soft. absent: Tenderness - Extremities Exam Extremities exam: full ROM, normal capillary refill, pedal pulses present - Back Exam Back exam: FULL ROM. absent: CVA tenderness (L), CVA tenderness (R), paraspinal tenderness, vertebral tenderness - Neurological Exam Neurological exam: Alert, CN II-XII Intact, Normal Gait, Oriented x3, Reflexes Normal - Psychiatric Exam Psychiatric exam: Normal Affect, Normal Mood - Skin Skin Exam: Dry, Normal Color, Warm Discharge Plan - Discharge Medications Prescriptions: Ciprofloxacin HCl [Cipro] 500 mg PO BID #14 tablet metroNIDAZOLE [Flagyl] 500 mg PO TID #21 tab Pantoprazole Sodium [Protonix] 40 mg PO DAILY #30 ect - Follow Up Plan Condition: IMPROVED Disposition: HOME/ ROUTINE Instructions: Acute Abdomen (Belly Pain), Adult (DC), Nausea and Vomiting, Adult (DC) Additional Instructions: Please either follow up with Dr. Suarez to see if she can do an elective cholecystectomy with your future gastric sleeve If you have a recurrence of pain, please try to go to a hospital that Dr. Suarez has privileges at so you can see a physician that knows your history. Please take antibiotics as prescribed Please abstain from drinking alcohol If you want to see Dr. White, you may go to the [facility] surgery clinic ff up with PMD rasheed- Dr Ck Luu Referrals: [facility] [Outside] Bell Stover [Medical Doctor] - Miguel Angel Tavarez MD [Medical Doctor] - Efrain White MD [Staff Provider] -
== END 2017-09-28 18:13 | disposition home or self-care (01) ==
LOC: H.ER 16:53 → INTOOBSV 20:48 → H.ERHOLD 20:48 → H.MEDSURG1 22:27 → OBSVTOIN 09-27 19:23 → INTOOBSV 09-27 19:23
PROVIDERS: ADMIT Internal Medicine; ATTEND Internal Medicine
DX: K80.20 Calculus of gallbladder without cholecystitis without obstruction (principal); F40.240 Claustrophobia; M17.11 Unilateral primary osteoarthritis, right knee; Z68.42 Body mass index [BMI] 45.0-49.9, adult; G43.909 Migraine, unspecified, not intractable, without status migrainosus; J40 Bronchitis, not specified as acute or chronic; K29.70 Gastritis, unspecified, without bleeding; Z79.899 Other long term (current) drug therapy; M54.5 Low back pain; R61 Generalized hyperhidrosis; R94.5 Abnormal results of liver function studies; E66.01 Morbid (severe) obesity due to excess calories; F10.20 Alcohol dependence, uncomplicated; F20.9 Schizophrenia, unspecified; F31.9 Bipolar disorder, unspecified; H40.9 Unspecified glaucoma; J45.909 Unspecified asthma, uncomplicated; Z23 Encounter for immunization; K83.8 Other specified diseases of biliary tract
CPT/HCPCS: 36415; 74177; 74181; 76705; 80048; 80053; 80074; 80076; 81003; 81025; 82390; 82784; 82787; 83540; 83550; 83690; 85025; 85610; 86039; 86255; 87086; 90732; 96361; 96374; 96375; 96376; 99284; C9113; G0009; G0378; J0744; J1885; J2060; J2405; J3411; J7030; J7042; Q9966; Q9967

== ENCOUNTER 2017-10-08 06:00 | Emergency (ER) | payer MEDICARE, MEDICAID ==
[2017-10-08 06:01] VITALS: BMI 45.5
[2017-10-08 06:17] VITALS: TEMP 97.5; O2SAT 97
--- NOTE | 2017-10-08 07:31 | ED PDOC ---
HPI: Abdomen Time Seen by Provider: 10/08/17 07:06 Chief Complaint (Nursing): Abdominal Pain Chief Complaint (Provider): abdominal pain History Per: Patient History/Exam Limitations: no limitations Onset/Duration Of Symptoms: Worse Since (yesterday) Current Symptoms Are (Timing): Still Present Associated Symptoms: Vomiting, Diarrhea. denies: Fever, Chills, Urinary Symptoms Additional Complaint(s): Maya Kidd is a 46 year old female, with a past medical history of cholelithiasis, depression, gastritis and peptic ulcer disease, who presents to the emergency department complaining of a worsening abdominal pain onset since yesterday associated with vomiting and intermittent diarrhea. Patient was recently seen in the ED and had a CT scan that showed gallstones and peptic ulcers. Patient was prescribed antibiotics but denies taking any pain medications. Patient states she is under a strict diet and believes the pain might be from the ulcers. Patient further states she has a scheduled gastric sleeve surgery. She reports improvement of diarrhea and vomiting today and denies any fever, chills or urinary symptoms. No further medical complaints. PMD: Bell Stover Past Medical History Reviewed: Historical Data, Nursing Documentation, Vital Signs Vital Signs: Last Vital Signs Temp 97.5 F L 10/08/17 12:13 Pulse 77 10/08/17 12:13 Resp 18 10/08/17 12:13 BP 116/73 10/08/17 12:13 Pulse Ox 97 10/09/17 15:52 - Medical History PMH: Arthritis, Asthma, Bipolar Disorder, Bronchitis, Depression, Gastritis, Gall Bladder Disease, Migraine, Schizophrenia Denies: Diabetes, Hepatitis, HIV, HTN, Chronic Kidney Disease, Seizures, Sexually Transmitted Disease Other PMH: peptic ulcers - Surgical History Other surgeries: Right knee and finger - Family History Family History: States: Unknown Family Hx, Hypertension - Social History Current smoker - smoking cessation education provided: No Alcohol: > 2 Drinks/Day Drugs: Denies - Immunization History Hx Tetanus Toxoid Vaccination: No Hx Influenza Vaccination: No Hx Pneumococcal Vaccination: No - Home Medications Home Medications: Ambulatory Orders Medication Instructions Recorded Sertraline [Zoloft] 100 mg PO DAILY 09/26/17 Ciprofloxacin HCl [Cipro] 500 mg PO BID #14 tablet 09/28/17 Pantoprazole Sodium [Protonix] 40 mg PO DAILY #30 ect 09/28/17 metroNIDAZOLE [Flagyl] 500 mg PO TID #21 tab 09/28/17 traMADol [Ultram] 50 mg PO TID PRN #15 tab 10/08/17 - Allergies Allergies/Adverse Reactions: Allergies Allergy/AdvReac Type Severity Reaction Status Date / Time avocado Allergy URTICARIA Verified 09/26/17 16:54 Penicillins Allergy URTICARIA Verified 09/26/17 16:54 seafood Allergy URTICARIA Uncoded 07/15/17 17:10 Review of Systems ROS Statement: Except As Marked, All Systems Reviewed And Found Negative Constitutional: Negative for: Fever, Chills Gastrointestinal: Positive for: Abdominal Pain. Negative for: Vomiting ( resolved), Diarrhea (resolved) Genitourinary Female: Negative for: Dysuria, Frequency, Incontinence Physical Exam - Reviewed Nursing Documentation Reviewed: Yes Vital Signs Reviewed: Yes - Physical Exam Appears: Positive for: No Acute Distress Head Exam: Positive for: ATRAUMATIC, NORMAL INSPECTION, NORMOCEPHALIC Skin: Positive for: Normal Color, Warm, Dry Eye Exam: Positive for: Normal appearance, EOMI, PERRL Neck: Positive for: Painless ROM Cardiovascular/Chest: Positive for: Regular Rate, Rhythm. Negative for: Murmur Respiratory: Positive for: Normal Breath Sounds. Negative for: Respiratory Distress Gastrointestinal/Abdominal: Positive for: Tenderness (epigastric), Other ( morbidly obese) Back: Positive for: Normal Inspection Extremity: Positive for: Normal ROM (upper and lower extremities). Negative for : Deformity, Swelling Neurologic/Psych: Positive for: Alert, Oriented. Negative for: Motor/Sensory Deficits - Laboratory Results Result Diagrams: 10/08/17 08:02 10/08/17 08:02 - ECG O2 Sat by Pulse Oximetry: 97 (RA) Pulse Ox Interpretation: Normal - Progress Re-evaluation Time: 11:30 Condition: Re-examined, Improved Medical Decision Making Medical Decision Making: Time: 07:06 Initial Impression: abdominal pain. Differential includes acute gastritis, pancreatitis r/o cholecystitis Initial Plan --CMP --Lipase --CBC w/ differential --Pepcid 20 mg IVP --Toradol 30 mg IVP --Abdomen Limited (GB Included) [US] --Reevaluation Time: 11:00 Ultrasound: FINDINGS: LIVER: Measures 18.4 cm in length. There is normal echogenicity of the liver parenchyma. No mass. No intrahepatic bile duct dilatation. GALLBLADDER: The gallbladder is distended and there are multiple gallstones with diffuse gallbladder wall thickening. The sonographic Padilla's sign is negative. COMMON BILE DUCT: Measures 5.8 mm. No stones. No dilatation. PANCREAS: Unremarkable as visualized. No mass. No ductal dilatation. RIGHT KIDNEY: Measures 10.0 cm in length. Normal echogenicity. No calculus, mass, or hydronephrosis. AORTA: No aneurysmal dilatation. IVC: Unremarkable. OTHER FINDINGS: None IMPRESSION: Findings may represent acute cholecystitis in the appropriate clinical setting. Clinical follow-up is advised. Mild hepatomegaly. 1110 There are no criteria for acute cholecystitis clinically at this time. No SIRS criteria. No fever, no RUQ pain, no Padilla sign, normal WBC, LFTs are at baseline for the patient. US findings are similar to one from previous study. Patient has been seen by Dr Christopher Rincon on last admission for the same and referred to outpatient follow up. Patient is taking abx for symptomatic cholelithiasis currently. Instructed to follow up with surgeon and PCP in 2 days. or return for worsening. ----- Scribe Attestation: Documented by Tyrone Chandra, acting as a scribe for Emory Diaz MD. Provider Scribe Attestation: All medical record entries made by the Scribe were at my direction and personally dictated by me. I have reviewed the chart and agree that the record accurately reflects my personal performance of the history, physical exam, medical decision making, and the department course for this patient. I have also personally directed, reviewed, and agree with the discharge instructions and disposition. Disposition - Clinical Impression Clinical Impression: Gallstones, Abdominal pain in female - Patient ED Disposition Is Patient to be Admitted: No Counseled Patient/Family Regarding: Studies Performed, Diagnosis - Disposition Referrals: Bell Stover [Primary Care Provider] - Efrain White MD [Staff Provider] - Disposition: Routine/Home Disposition Time: 11:44 Condition: GOOD Additional Instructions: Take your medications as instructed. Follow up with your PCP in 2-3 days. Return for worsening. Prescriptions: traMADol [Ultram] 50 mg PO TID PRN #15 tab PRN Reason: Pain, Severe (8-10) Instructions: Gallstones (DC) Forms: [employer] (Nepali)
[2017-10-08 08:15] LABS: BASO % 0.6 % (0.0-2.0); EOS % 0.7 % (0.0-4.0); HEMOGLOBIN 10.9 g/dL (12.0-16.0); LYMPH # 0.6 K/uL (1.0-4.3); LYMPH % 10.5 % (20.0-40.0); MEAN CORPUSCULAR HEMOGLOBIN 28.7 pg (27.0-31.0); MEAN CORPUSCULAR HGB CONC 34.2 g/dL (33.0-37.0); MEAN PLATELET VOLUME 8.3 fl (7.2-11.7); MONO # 0.3 K/uL (0.0-0.8); MONO % 5.4 % (0.0-10.0); NEUT # 4.7 K/uL (1.8-7.0); NEUT % 82.8 % (50.0-75.0); NRBC % 0.1 % (0.0-0.0); RBC 3.8 Mil/uL (3.80-5.20); RED CELL DISTRIBUTION WIDTH 16.2 % (11.5-14.5); WHITE BLOOD COUNT 5.7 K/uL (4.8-10.8)
[2017-10-08 08:27] LABS: ALB/GLOB RATIO 1.3 (1.0-2.1); ALBUMIN 4.1 g/dL (3.5-5.0); ALT/SGPT 94 U/L (9-52); AST/SGOT 222 U/L (14-36); BLOOD UREA NITROGEN 10 mg/dl (7-17); GFR AFRICAN-AMERICAN > 60; GFR NON-AFRICAN AMERICAN > 60; LIPASE 135 U/L (23-300)
--- NOTE | 2017-10-08 11:01 | US ---
Date of service: 10/08/2017 HISTORY: epigastric pain COMPARISON: 09/28/2017. TECHNIQUE: Grayscale imaging was performed. FINDINGS: LIVER: Measures 18.4 cm in length. There is normal echogenicity of the liver parenchyma. No mass. No intrahepatic bile duct dilatation. GALLBLADDER: The gallbladder is distended and there are multiple gallstones with diffuse gallbladder wall thickening. The sonographic Padilla's sign is negative. COMMON BILE DUCT: Measures 5.8 mm. No stones. No dilatation. PANCREAS: Unremarkable as visualized. No mass. No ductal dilatation. RIGHT KIDNEY: Measures 10.0 cm in length. Normal echogenicity. No calculus, mass, or hydronephrosis. AORTA: No aneurysmal dilatation. IVC: Unremarkable. OTHER FINDINGS: None IMPRESSION: Findings may represent acute cholecystitis in the appropriate clinical setting. Clinical follow-up is advised. Mild hepatomegaly.
[2017-10-08 12:15] VITALS: BP 116/73; PULSE 77; RESP 18
== END 2017-10-08 12:13 | disposition home or self-care (01) ==
LOC: H.ER 06:00
DX: K80.20 Calculus of gallbladder without cholecystitis without obstruction (principal); R10.9 Unspecified abdominal pain; Z87.11 Personal history of peptic ulcer disease; Z88.0 Allergy status to penicillin
CPT/HCPCS: 76705; 80053; 81025; 83690; 85025; 96374; 96375; 99285; J1885

== ENCOUNTER 2018-01-30 09:20 | Day surgery (SDC) | payer MEDICARE ==
[2018-01-30] MEDS ORDERED: Succinylcholine 200 mg/10 ml Inj IV ONE (11:15)
[2018-01-30] MEDS ORDERED: Rocuronium 10 mg/ml (5 ml) ONE (11:15)
[2018-01-30] MEDS ORDERED: Phenylephrine 10 mg/ml Inj ONE (11:15)
[2018-01-30] MEDS ORDERED: Lidocaine 1% Inj (20ml) ONE (11:15)
[2018-01-30] MEDS ORDERED: Propofol 10 mg/ml Inj (20 ML) ONE ×3 (11:15→11:16)
[2018-01-30] MEDS ORDERED: ceFAZolin IV 1 gm in Dextrose 0 GM/0 ML BAG IVPB ONE (11:43)
[2018-01-30] MEDS ORDERED: Lactated Ringer's 1,000 ML IV ONE ×2 (12:05→12:47)
[2018-01-30] MEDS ORDERED: Midazolam 2 MG/2 ML VIAL ONE (12:07)
[2018-01-30] MEDS ORDERED: Bupivacaine 0.5% 50 ML IJ ONE ×2 (12:39→13:04)
[2018-01-30] MEDS ORDERED: Neostigmine 1:1000 (1 mg/ml) Inj ONE (12:59)
[2018-01-30] MEDS ORDERED: HYDROmorphone 0.5 mg/0.5 ml ISec IVP PRN (13:25)
--- NOTE | 2018-01-30 13:25 | PCM.SURG1 ---
Surgeon's Initial Post Op Note - Surgeon's Notes Surgeon: Dr. Jasmine Polisher Numeral: Dr. Lora Pablo Type of Anesthesia: General Endo Pre-Operative Diagnosis: Gallstones Operative Findings: see operative dictation Post-Operative Diagnosis: same Operation Performed: laparoscopic cholecystectomy Specimen/Specimens Removed: gallbladder Estimated Blood Loss: EBL {In ML}: 10 Blood Products Given: N/A Drains Used: No Drains Post-Op Condition: Good Date of Surgery/Procedure: 01/30/18 Time of Surgery/Procedure: 13:25
[2018-01-30] MEDS ORDERED: Oxycodone/Acetaminophen 5/325 mg Tab PO PRN ×2 (13:28)
[2018-01-30 15:17] VITALS: RESP 18
--- NOTE | 2018-01-30 15:53 | CP.SDSHP ---
Same Day Surgery H & P - History Proposed Procedure: Laparoscopic cholecystectomy Pre-Op Diagnosis: acute cholecystitis - Allergies Allergies: Allergies avocado Allergy (Verified 01/30/18 11:13) URTICARIA Penicillins Allergy (Verified 01/30/18 11:13) URTICARIA seafood Allergy (Uncoded 01/30/18 11:13) URTICARIA - Physical Exam General Appearance: NAD Vital Signs: Vital Signs 01/30/18 01/30/18 01/30/18 11:07 11:13 13:17 Temperature 97.5 F L 97.4 F L Pulse Rate 76 76 92 H Respiratory 20 16 Rate Blood Pressure 143/78 124/70 O2 Sat by Pulse 98 100 Oximetry 01/30/18 01/30/18 01/30/18 13:30 13:45 14:00 Temperature 97.3 F L 97.0 F L 97.0 F L Pulse Rate 80 71 65 Respiratory 16 16 19 Rate Blood Pressure 118/74 134/91 H 126/78 O2 Sat by Pulse 100 100 100 Oximetry 01/30/18 01/30/18 01/30/18 14:15 14:30 14:45 Temperature 97.1 F L 96.6 F L 97.3 F L Pulse Rate 62 61 67 Respiratory 19 19 19 Rate Blood Pressure 121/69 122/72 125/76 O2 Sat by Pulse 100 99 96 Oximetry 01/30/18 01/30/18 15:00 15:10 Temperature 97.8 F 97.6 F Pulse Rate 66 79 Respiratory 19 18 Rate Blood Pressure 128/80 140/54 L O2 Sat by Pulse 96 98 Oximetry Mental Status: Alert & Oriented x3 Neuro: WNL Heart: WNL Lungs: WNL GI: WNL - Impression Impression: acute cholecystitis Short Stay Discharge - Short Stay Discharge Admitting Diagnosis/Reason for Visit: K81.0 Disposition: HOME/ ROUTINE Referrals: Nabor Jasmine MD [Staff Provider] - Follow-up: Follow up within 1-2 weeks. Instructions: Cholecystectomy (DC), Gallstones (DC) Additional Instructions (Diet, Activity): Please follow up with your surgeon, Dr. Jasmine, within 1-2 weeks. Please take pain medications as needed. Resume regular diet and home medications. No heavy lifting greater than 10-15 pounds for the next 4 weeks. Ok to shower. No baths, pools, or other larger bodies of water for the next 2 weeks. Incision has glue which will come off on its own, do not attempt to remove glue manually. If symptoms worsen, including but not limited to fever, please return to the ED.
[2018-01-30 18:05] VITALS: BP 132/76; PULSE 76; TEMP 97.9; O2SAT 100
--- NOTE | 2018-02-06 10:31 | OP ---
Date of Surgery/Procedure: 01/30/18 Time of Surgery/Procedure: 13:25 Surgeon: Dr. Jasmine Chief Operating Officer: Dr. Lora Pablo Type of Anesthesia: General Endo Pre-Operative Diagnosis: Gallstones Operative Findings: gallbladder Post-Operative Diagnosis: same Operation Performed: laparoscopic cholecystectomy Specimen/Specimens Removed: gallbladder Estimated Blood Loss: EBL {In ML}: 10 Blood Products Given: N/A Drains Used: No Drains PREPARATION AND PROCEDURE: The patient was taken to the Operating Room and placed supine on the operating table. After induction of general anesthesia, the abdomen was prepped and draped in a standard surgical fashion. A Veress needle was inserted into the abdomen through the umbilicus. The abdomen was insufflated. Once sufficient CO2 was entered into the abdomen, a 10 mm trocar was placed through the umbilicus and a diagnostic laparoscopy was performed. The patient was then placed into the reversed Trendelenburg left side down position and the subxiphoid and two right-sided trocars were placed under direct vision. The gallbladder was grasped from the fundus and pulled upwards and the neck of the gallbladder was pulled outwards exposing the triangle of Calot. Blunt dissection with a [place] dissector was used to isolate the contents of the triangle of Calot. Once the contents of the triangle were isolated. The cystic duct was identified and seen to be entering the gallbladder. The cystic duct was then clipped and divided. The cystic artery was then encircled clipped and divided in a similar fashion. The gallbladder was then taken off the gallbladder fossa using the electrocautery. Once the gallbladder was off the gallbladder fossa, it was placed into an EndoCatch bag. The right upper quadrant was copiously irrigated. The gallbladder fossa was checked for bleeding. There was no evidence of bleeding. The irrigant was removed. The gallbladder was then removed via the umbilical trocar site. The trocars were then removed under direct vision. The umbilical trocar site was closed using #0 Vicryl. The skin incisions were closed using #4-0 Monocryl and the patient had 10 cc of 1% Marcaine infiltrated into all the wounds. The patient tolerated the procedure well. There were no complications. The sponge, instrument and needle counts were correct at the end of the case. POSTOPERATIVE CONDITION: The patient was then awakened from general anesthesia, transported to the Recovery Room in satisfactory condition MD KYLEE Barr
== END 2018-01-30 18:50 | disposition home or self-care (01) ==
LOC: H.OPSURG 09:20
PROVIDERS: ATTEND Surgery
DX: K81.0 Acute cholecystitis (principal); M19.90 Unspecified osteoarthritis, unspecified site; E66.01 Morbid (severe) obesity due to excess calories; F32.9 Major depressive disorder, single episode, unspecified; Z88.0 Allergy status to penicillin
CPT/HCPCS: 47562; 88304; J0330; J1170; J2001; J2250; J2370; J2405; J2704; J2710; J3010; J7030; J7120

== ENCOUNTER 2018-03-07 09:01 | Emergency (ER) | payer MEDICARE, MEDICAID ==
[2018-03-07 09:09] VITALS: O2SAT 98
[2018-03-07] MEDS ORDERED: Albuterol 0.083% Inhal Sol (2.5 mg/3 mL) UD INH ONE (09:35)
--- NOTE | 2018-03-07 09:56 | ED PDOC ---
History of Present Illness History of Present Illness: Maya Kidd is a 47 year old female with a past medical history of gastritis, depression, anxiety and asthma who is presenting to the ED for evaluation of non-productive cough, fever and mild abdominal pain associated with cough onset yesterday morning. Patient states that she got her flu shot this season in November and denies any vomiting or diarrhea. Patient offers no other medical complaints at this time. PMD: none provided HPI: Influenza Time Seen by Provider: 03/07/18 09:12 Chief Complaint: Cough, Cold, Congestion Chief Complaint (Provider): Cough, Cold, Congestion History Per: Patient Exam Limitations: no limitations Onset/Duration Of Symptoms: Days Symptoms include: fever, cough. denies: vomiting, diarrhea Past Medical History Reviewed: Historical Data, Nursing Documentation, Vital Signs Vital Signs: Last Vital Signs Temp 97.5 F L 03/07/18 09:05 Pulse 94 H 03/07/18 09:05 Resp 20 03/07/18 09:08 BP 125/80 03/07/18 09:05 Pulse Ox 98 03/07/18 09:08 - Medical History PMH: Anxiety, Arthritis, Asthma (denies), Bipolar Disorder, Bronchitis (denies), Depression, Gastritis, Gall Bladder Disease, Migraine, Schizophrenia Denies: Diabetes, Hepatitis, HIV, HTN, Chronic Kidney Disease, Seizures, Sexually Transmitted Disease - Surgical History Surgical History: Cholecystectomy - Family History Family History: States: Hypertension - Social History Current smoker - smoking cessation education provided: No Alcohol: > 2 Drinks/Day Drugs: Denies - Immunization History Hx Tetanus Toxoid Vaccination: No Hx Influenza Vaccination: No Hx Pneumococcal Vaccination: No - Home Medications Home Medications: Ambulatory Orders Medication Instructions Recorded oxyCODONE/Acetaminophen [Percocet 1 tab PO Q4 PRN 01/30/18 5/325 mg Tab] Oseltamivir Cap [Tamiflu] 75 mg PO BID #10 cap 03/07/18 RX: Albuterol HFA [Ventolin HFA 90 1 - 2 puff IH Q4H PRN #1 bottle 03/07/18 mcg/actuation (8 g)] Docusate Sodium [Dulcolax Stool 100 mg PO DAILY #12 capsule 03/09/18 Softener] Sod Phos,M-B/Na Phos,Di-Ba [Fleet 133 ml RC DAILY #5 enema 03/09/18 Enema] - Allergies Allergies/Adverse Reactions: Allergies Allergy/AdvReac Type Severity Reaction Status Date / Time avocado Allergy URTICARIA Verified 03/07/18 09:07 Penicillins Allergy URTICARIA Verified 03/07/18 09:07 seafood Allergy URTICARIA Uncoded 03/07/18 09:07 Review of Systems ROS Statement: Except As Marked, All Systems Reviewed And Found Negative Constitutional: Positive for: Fever Respiratory: Positive for: Cough Gastrointestinal: Positive for: Abdominal Pain. Negative for: Vomiting, Diarrhea Physical Exam - Reviewed Nursing Documentation Reviewed: Yes Vital Signs Reviewed: Yes - Physical Exam Appears: Positive for: Non-toxic, No Acute Distress Head Exam: Positive for: ATRAUMATIC, NORMAL INSPECTION, NORMOCEPHALIC Skin: Positive for: Normal Color, Warm, DRY Eye Exam: Positive for: Normal appearance ENT: Positive for: Normal ENT Inspection Neck: Positive for: Normal Cardiovascular/Chest: Positive for: Regular Rate, Rhythm. Negative for: Murmur Respiratory: Positive for: Normal Breath Sounds, Other (cough). Negative for: Respiratory Distress Gastrointestinal/Abdominal: Positive for: Normal Exam, Soft. Negative for: Tenderness Extremity: Positive for: Normal ROM. Negative for: Deformity, Swelling Neurologic/Psych: Positive for: Alert, Oriented. Negative for: Motor/Sensory Deficits Medical Decision Making Medical Decision Making: Time: 9:35 Impression: Rule out flu, pneumonia Plan: --Chest x-ray --Albuterol 2.5 mg INH --Peak Flow Ore/Post TX --Influenza A B Flu test was negative. Chest X-Ray: FINDINGS: LUNGS: No active pulmonary disease. PLEURA: No significant pleural effusion identified. No pneumothorax apparent. CARDIOVASCULAR: No aortic atherosclerotic calcification present. Normal cardiac size. No pulmonary vascular congestion. OSSEOUS STRUCTURES: No significant abnormalities. VISUALIZED UPPER ABDOMEN: Normal. OTHER FINDINGS: None. IMPRESSION: No active disease. No interval pathology noted. pt feels improved, discussed results. will follow up as an outpatient. Scribe Attestation: Documented by Khushi Sellers, acting as a scribe for Nory Pastor MD. Provider Scribe Attestation: All medical record entries made by the Scribe were at my direction and personally dictated by me. I have reviewed the chart and agree that the record accurately reflects my personal performance of the history, physical exam, medical decision making, and the department course for this patient. I have also personally directed, reviewed, and agree with the discharge instructions and disposition. - ECG O2 Sat by Pulse Oximetry: 98 Disposition - Clinical Impression Clinical Impression: Cough - Patient ED Disposition Is Patient to be Admitted: No Counseled Patient/Family Regarding: Studies Performed, Diagnosis, Need For Followup - Disposition Disposition: Routine/Home Disposition Time: 12:00 Condition: IMPROVED Additional Instructions: follow up with your primary doctor in 1-2 days return to the ED with any worsening or concerning symptoms Prescriptions: RX: Albuterol HFA [Ventolin HFA 90 mcg/actuation (8 g)] 1 - 2 puff IH Q4H PRN #1 bottle PRN Reason: Wheezing Oseltamivir Cap [Tamiflu] 75 mg PO BID #10 cap Instructions: Cough, Adult (DC) Forms: [employer] (Macedonian)
[2018-03-07] MEDS ORDERED: Albuterol 0.083% Inhal Sol (2.5 mg/3 mL) UD ONE (10:17)
--- NOTE | 2018-03-07 10:59 | RAD ---
Date of service: 03/07/2018 HISTORY: cough COMPARISON: 12/24/2016 TECHNIQUE: Chest PA and lateral FINDINGS: LUNGS: No active pulmonary disease. PLEURA: No significant pleural effusion identified. No pneumothorax apparent. CARDIOVASCULAR: No aortic atherosclerotic calcification present. Normal cardiac size. No pulmonary vascular congestion. OSSEOUS STRUCTURES: No significant abnormalities. VISUALIZED UPPER ABDOMEN: Normal. OTHER FINDINGS: None. IMPRESSION: No active disease. No interval pathology noted.
[2018-03-07 12:02] VITALS: BP 126/78; PULSE 78; RESP 19; TEMP 97.7
== END 2018-03-07 12:02 | disposition home or self-care (01) ==
LOC: H.ER 09:01
DX: R05 Cough (principal); Z86.59 Personal history of other mental and behavioral disorders; J45.909 Unspecified asthma, uncomplicated; Z79.899 Other long term (current) drug therapy; Z88.0 Allergy status to penicillin

== ENCOUNTER 2018-03-08 22:28 | Emergency (ER) | payer MEDICARE, MEDICAID ==
[2018-03-08 22:33] VITALS: BP 151/80; PULSE 103; RESP 18; TEMP 98.5; O2SAT 97
[2018-03-08] MEDS ORDERED: Simethicone 80 mg Chewtab PO STA (23:01)
--- NOTE | 2018-03-09 01:41 | ED PDOC ---
HPI: Abdomen Time Seen by Provider: 03/08/18 22:44 Chief Complaint (Nursing): Abdominal Pain Chief Complaint (Provider): Abdominal Pain History Per: Patient History/Exam Limitations: no limitations Additional Complaint(s): 47 y/o female with history of morbid obesity presents to the ED complaining of right sided abdominal pain, onset around 20:00. Patient state the pain is constant and is non-radiating. She denies any associated nausea, vomiting, fever. She does report being constipated a lot recently. Patient reports she has not had a full bowel movement since last Sunday. Of note, patient was seen in the ER yesterday for flu-like illness. Past Medical History Reviewed: Historical Data, Nursing Documentation, Vital Signs Vital Signs: Last Vital Signs Temp 98.5 F 03/08/18 22:30 Pulse 103 H 03/08/18 22:30 Resp 18 03/08/18 22:30 BP 151/80 H 03/08/18 22:30 Pulse Ox 97 03/08/18 22:30 - Medical History PMH: Anxiety, Arthritis, Asthma (denies), Bipolar Disorder, Bronchitis (denies), Depression, Gastritis, Gall Bladder Disease, Migraine, Schizophrenia Denies: Diabetes, Hepatitis, HIV, HTN, Chronic Kidney Disease, Seizures, Sexually Transmitted Disease - Surgical History Surgical History: Cholecystectomy - Family History Family History: States: Unknown Family Hx, Hypertension - Immunization History Hx Tetanus Toxoid Vaccination: No Hx Influenza Vaccination: No Hx Pneumococcal Vaccination: No - Home Medications Home Medications: Ambulatory Orders Medication Instructions Recorded oxyCODONE/Acetaminophen [Percocet 1 tab PO Q4 PRN 01/30/18 5/325 mg Tab] Albuterol HFA [Ventolin HFA 90 1 - 2 puff IH Q4H PRN #1 bottle 03/07/18 mcg/actuation (8 g)] Oseltamivir Cap [Tamiflu] 75 mg PO BID #10 cap 03/07/18 Docusate Sodium [Dulcolax Stool 100 mg PO DAILY #12 capsule 03/09/18 Softener] Sod Phos,M-B/Na Phos,Di-Ba [Fleet 133 ml RC DAILY #5 enema 03/09/18 Enema] - Allergies Allergies/Adverse Reactions: Allergies Allergy/AdvReac Type Severity Reaction Status Date / Time avocado Allergy URTICARIA Verified 03/07/18 09:07 Penicillins Allergy URTICARIA Verified 03/07/18 09:07 seafood Allergy URTICARIA Uncoded 03/07/18 09:07 Review of Systems ROS Statement: Except As Marked, All Systems Reviewed And Found Negative Constitutional: Negative for: Fever Gastrointestinal: Positive for: Abdominal Pain, Constipation. Negative for: Nausea, Vomiting Physical Exam - Reviewed Nursing Documentation Reviewed: Yes Vital Signs Reviewed: Yes - Physical Exam Appears: Positive for: Well, Non-toxic, No Acute Distress Head Exam: Positive for: ATRAUMATIC, NORMOCEPHALIC Skin: Positive for: Normal Color, Warm, Dry Eye Exam: Positive for: EOMI, Normal appearance, PERRL Neck: Positive for: Normal, Painless ROM Cardiovascular/Chest: Positive for: Regular Rate, Rhythm, Tachycardia (mildly). Negative for: Murmur Respiratory: Positive for: Normal Breath Sounds. Negative for: Respiratory Distress Gastrointestinal/Abdominal: Positive for: Tenderness (focal right sided tende rness in middle abdomen; no RUQ tenderness no RLQ tenderness) Back: Positive for: Normal Inspection. Negative for: L CVA Tenderness, R CVA Tenderness, Vertebral Tenderness Extremity: Positive for: Normal ROM. Negative for: Pedal Edema, Deformity Neurologic/Psych: Positive for: Alert, Oriented. Negative for: Motor/Sensory Deficits - ECG O2 Sat by Pulse Oximetry: 97 (RA) Pulse Ox Interpretation: Normal Medical Decision Making Medical Decision Making: Time: 23:01 Initial Impression: 47 y/o female with abdominal pain. Symptoms are non- obstructive; unlikely to be appendicitis or other acute intraabdominal pa thology. Differential diagnosis includes gas vs. constipation. Will get obstructive series to evaluate bowel gas patterns and treat symptoms and reevaluate. Initial Plan: * RAD - Obstructive Series * Motirn 600 mg * Mylicon chew 80 mg * Reevaluation 01:31 Upon reevaluation patient is feeling much better and is stable for discharge home. Well appearing. STrongly encouraged followup with PMD --- Scribe Attestation: Documented by Sai Harrison acting as a scribe for Yoni Finney MD. Provider Scribe Attestation: All medical record entries made by the Scribe were at my direction and personally dictated by me. I have reviewed the chart and agree that the record accurately reflects my personal performance of the history, physical exam, medical decision making, and the department course for this patient. I have also personally directed, reviewed, and agree with the discharge instructions and disposition. Disposition - Clinical Impression Clinical Impression: Constipation - Patient ED Disposition Is Patient to be Admitted: No - Disposition Referrals: [facility] [Outside] Disposition: Routine/Home Disposition Time: : Condition: STABLE Additional Instructions: DEMETRIUS JOEL, thank you for letting us take care of you today. Your provider was Yoni Finney MD and you were treated for ABD PAIN. The emergency medical care you received today was directed at your acute symptoms. If you were prescribed any medication, please fill it and take as directed. It may take several days for your symptoms to resolve. Return to the Emergency Department if your symptoms worsen, do not improve, or if you have any other problems. Please contact your doctor or call one of the physicians/clinics you have been referred to that are listed on the Patient Visit Information form that is included in your discharge packet. Bring any paperwork you were given at discharge with you along with any medications you are taking to your follow up visit. Our treatment cannot replace ongoing medical care by a primary care provider outside of the emergency department. Thank you for allowing the [facility] team to be part of your care today. If you had an X-Ray or CT scan: A Radiologist will review the ED reading if any change in treatment is needed we will contact you. If you had a blood, urine, or wound culture: It will take several days for the results, if any change in treatment is needed we will contact you. If you had an STI test: It will take 48 hours for the results. Please call after 1 week if you have not heard back. Prescriptions: Docusate Sodium [Dulcolax Stool Softener] 100 mg PO DAILY #12 capsule Sod Phos,M-B/Na Phos,Di-Ba [Fleet Enema] 133 ml RC DAILY #5 enema Instructions: Constipation in Adults Forms: [facility] ([place]uan)
--- NOTE | 2018-03-09 09:57 | RAD ---
Date of service: 03/08/2018 PROCEDURE: Radiographs of the chest and abdomen (obstructive series) HISTORY: abd pain, constipation COMPARISON: No prior. TECHNIQUE: AP radiograph of the chest, with upright and supine radiographs of the abdomen. FINDINGS: CHEST: Lungs: Clear. Cardiovascular: Normal size heart. No pulmonary vascular congestion. No aortic atherosclerotic calcification present Pleura: No pleural fluid. No pneumothorax. Other findings: None. ABDOMEN AND PELVIS: Bowel: Moderate fecal loading is seen at the majority colon but is relatively prominent the ascending colon. Free air: None. Bones: Unremarkable. Other findings: Surgical clips right upper quadrant abdomen. IMPRESSION: No acute cardiopulmonary disease. No bowel obstruction, free air or abnormal intra-abdominal calcifications. Surgical clips noted right upper quadrant. Mildly prominent fecal loading seen in the colon.
== END 2018-03-09 01:28 | disposition home or self-care (01) ==
LOC: H.ER 22:28
DX: K59.00 Constipation, unspecified (principal); Z86.59 Personal history of other mental and behavioral disorders; Z79.899 Other long term (current) drug therapy; Z88.0 Allergy status to penicillin